=== PATIENT | female | born 1990 | race Hispanic/Latino ===

== ENCOUNTER 2016-04-09 10:18 | Outpatient (CLI) | payer OTHER ==
[~2016-04-09] VITALS: Ht 160 cm; Wt 70.0 kg
[~2016-04-09 10:18] MED LIST: /ONDA4TA PO; ULTR50TA PO; [UNRECOGNIZED DRUG - CODE] PO; augmentin PO; benadryl PO; celebrex PO; mylicon PO; neurontin PO; oxycodone PO; tylenol PO
[2016-04-09 10:38] VITALS: BP 128/75
--- NOTE | 2016-04-09 11:48 | IPNPDOC ---
Text Note Date of Service The patient was seen on 04/09/16 at 11:47. NOTE Subjective: Veena is a 25yo with SIUP at 21+ weeks who presents to triage after first episode of bleeding in . She reports that she was lying down and got up this morning, experienced a gush of fluid and when she looked noted it was blood that saturated her underwear. States she went to the bathroom and there was more blood in the toilet. Put a pad on and came here- just brown spotting on the pad. No fluid loss, just blood. Feels movement. Some slight cramping, but more annoying than painful. Denies abnormal vaginal discharge or smell. No recent intercourse. Did just return from seeing family for [place] in [place] yesterday. Had a long car trip, but stopped every hour or so to urinate and walk around. No other complaints. PMhx and course completely uncomplicated. Has not yet had 20wk anatomy scan- scheduled Apr. Objective: Vitals wnl Dop[place]es 140s [place]: slight uterine irritability Physical: Gen: well developed and well nourished in NAD. Mental: A&Ox3. Abdomen: Soft NT/ND without rebound or guarding Extremity: no edema in LE bilaterally (SSE chaperoned by RN)SSE: quarter sized clot removed from vaginal vault in front of cervix, os visually closed and cervix is thick with no active bleeding noted, no pooling of blood. Cervix not friable with touch of kimball swab. TAUS: positive FCA and FM; obrien IUP; visually adequate fluid; placenta posterior/fundal- not near the cervix, transverse presentation; no placental abnormalities noted. Assessment: Veena is a 25yo with SIUP at 21+ weeks with single isolated vaginal bleed in . Reassuring status with doptones and TAUS. Vitals stable with benign physical exam. Cervix visually closed and thick with no active bleeding. No evidence of placental abnormalities or previa on TAUS. course uncomplicated and PMHx noncontributory. Plan: -Advised vaginal rest until after anatomy scan on 13 April confirms my findings of no previa -Return precautions given. Patient knows to come back for another episode of bright red bleeding, but understands she will have some spotting in the next day or so -encouraged hydration and rest -med rec reviewed Dr. Dorian De La Garza MD [place], AZIZA VS,[place], I+O VSBryn I+O Vital Signs Date Time Temp Pulse Resp B/P Pulse Ox O2 Delivery O2 Flow Rate FiO2 04/09/16 10:38 96.7 16 04/09/16 10:38 92 128/75 DORIAN DE LA GARZA MD Apr 09, 2016 11:48
== END 2016-04-09 11:34 | disposition home or self-care (01) ==
LOC: M LDO 10:18
PROVIDERS: ATTEND Obstetrics & Gynecology
DX: O26.852 Spotting complicating pregnancy, second trimester (principal); Z3A.21 21 weeks gestation of pregnancy; O62.4 Hypertonic, incoordinate, and prolonged uterine contractions

== ENCOUNTER 2016-04-26 19:47 | Outpatient (CLI) | payer OTHER ==
[~2016-04-26] VITALS: Ht 160 cm; Wt 72.0 kg
[2016-04-26] MEDS ORDERED: ACET50TA PO (20:14)
[2016-04-26] MEDS ORDERED: PRENTAB55 PO (20:14)
--- NOTE | 2016-04-26 21:18 | IPNPDOC ---
Text Note Date of Service The patient was seen on 04/26/16 at 21:17. NOTE OB Triage Subjective: Pt is a 26yo with an IUP at 24+wk who presents to L&D complaining of various things such as episodes of SOB, occasional leg numbness when lying on her side in bed that resolves, two episodes of nausea with emesis today, left sided back pain, chest tenderness, congestion, and an episode of what she thinks was blacking out while lying on the couch watching Netflix this evening. She had her routine 24wk appointment earlier today where she had some of the complaints mentioned above, but not the emesis or passing out. She presents to make sure everything is ok. She drove here herself, her is in [place] for [employer] training. She denies: cough, fever, sore throat, sick contacts, diarrhea, burning with urination, previous episodes of blacking out, contractions, loss of fluid, vaginal bleeding She endorses good movement and hydration Objective: Vitals wnl to include pulse ox NST reassuring for gestational age with moderate variability, pos accels, neg decels [place]: No contractions or uterine irritability. Physical Exam: General: WDWN gravid female in NAD Mental : AAOx3 HEENT: oral mucosa moist Pulmonary: CTAB without rhales, rhonchi, or wheezes. Cardiac: RRR without murmurs, gallops, or rubs. Chest: non-specific mild tenderness to palpation generalized over chest wall Abdominal: Gravid abdomen without guarding or tenderness Back: No CVA tenderness Extremity: no edema in LE bilaterally, no pain with palpation of calves Random fingerstick glucose: 125 Assessment: Pt is a 26yo with an IUP at 24+wk with myriad unassociated physical complaints. Possible episode of syncope while patient was lying down watching tv and two episodes of reported emesis lead toward dx of nonspecific viral illness. Syncope not related to hypoglycemia or hypotension. Vitals stable without abnormalities on exam. Reassuring NST without CTXs or uterine irritability. Plan: -Pt instructed to go home and rest, advised to call our nurse/physician line if any particular symptoms are worsening -f/u at next OB appt as scheduled -continue good hydration -return to triage if syncope occurs again or if she experiences fever or any other concerning symptom MD Brenna Solomon OBGYN ISATU,DORIAN D. MD Apr 26, 2016 21:18
== END 2016-04-26 20:55 | disposition home or self-care (01) ==
LOC: M LDO 19:47
PROVIDERS: ATTEND Obstetrics & Gynecology
DX: O26.892 Other specified pregnancy related conditions, second trimester (principal); O21.2 Late vomiting of pregnancy; M54.89 Other dorsalgia; Z3A.24 24 weeks gestation of pregnancy

== ENCOUNTER 2016-06-06 05:38 | Outpatient (CLI) | payer OTHER ==
[~2016-06-06] VITALS: Ht 160 cm; Wt 75.0 kg
[~2016-06-06 05:38] MED LIST changes: +ACET50TA PO; +PRENTAB55 PO
[2016-06-06 05:59] VITALS: BP 114/65
--- NOTE | 2016-06-06 06:57 | IPNPDOC ---
Text Note Date of Service The patient was seen on 06/06/16. NOTE Subjective: Veena is a 26yo with an IUP at 29wk who presents to triage for ctxs/cramping. She states intermittent cramping started yesterday and has not stopped. The frequency is every 10 min. She has no other complaints or concerns at this time. ROS: Admits: Gross movement, good oral hydration. Denies: Vaginal bleeding/discharge/loss of fluid, fever, N/V, dysuria, urinary urgency, flank pain, recent sexual activity, vaginal itching or pain. Objective: VSS NST: Reactive with moderate variability, pos accels, neg decels. [place]: NO ctx or uterine irritability Physical Exam- General: WDWN gravid female in NAD Mental : AAOx3 HEENT: oral mucosa moist Abdominal: Soft NT/ND without guarding or rebound, no palpable ctx Extremity: no edema in LE bilaterally (SCE chaperoned by RN) SCE: closed/thick/high, very posterior Labs: Urine dipstick- unremarkable, spec grav 1.025 Assessment: Veena is a 26yo with an IUP at 29wk without evidence of labor. Vitals stable with benign physical exam. Reactive NST with no CTXs. SCE cl/th/high. Plan: - labor precautions discussed with patient. -f/u at next scheduled OB appt and growth scan indicated for inadequate weight gain - kick counts prn -encouraged increasing hydration -Return precautions given for bleeding, fluid loss, contractions, decreased movement -medrec reviewed Dr. Dorian De La Garza MD [place] [facility] [place] GREEN, I+O Bry[place] GREEN, I+O Vital Signs Date Time Temp Pulse Resp B/P Pulse Ox O2 Delivery O2 Flow Rate FiO2 06/06/16 06:00 20 06/06/16 05:59 97.5 84 114/65 Room Air DORIAN DE LA GARZA MD Jun 06, 2016 06:57
== END 2016-06-06 06:56 | disposition home or self-care (01) ==
LOC: M LDO 05:38
PROVIDERS: ATTEND Obstetrics & Gynecology
DX: O26.893 Other specified pregnancy related conditions, third trimester (principal); R10.9 Unspecified abdominal pain; Z3A.29 29 weeks gestation of pregnancy

== ENCOUNTER → 2016-06-07 | Outpatient (CLI) | payer OTHER ==
[2016-06-07 14:54] LABS: ALBUMIN 2.9 GM/DL (3.2-5.2); ALBUMIN/GLOBULIN RATIO 0.73 (1.00-1.93); ALKALINE PHOSPHATASE 97 U/L (45-117); ALT/SGPT 27 U/L (12-78); AST/SGOT 20 U/L (15-37); BILIRUBIN,DIRECT < 0.1 MG/DL (0.0-0.2); BILIRUBIN,TOTAL 0.2 MG/DL (0.2-1.0); TOTAL PROTEIN 6.9 GM/DL (6.4-8.2)
== END ==
LOC: M LAB 13:57
PROVIDERS: ATTEND Internal Medicine Gastroenterology
DX: R74.8 Abnormal levels of other serum enzymes (principal)

== ENCOUNTER 2016-08-01 18:02 | Outpatient (CLI) | payer OTHER ==
[~2016-08-01] VITALS: Ht 160 cm; Wt 74.0 kg
[2016-08-01] MEDS ORDERED: TUMS500C PO (18:10)
== END 2016-08-01 22:40 | disposition home or self-care (01) ==
LOC: M LDO 18:02
PROVIDERS: ATTEND Obstetrics & Gynecology
DX: O47.1 False labor at or after 37 completed weeks of gestation (principal); Z3A.37 37 weeks gestation of pregnancy

== ENCOUNTER 2016-08-08 07:30 | Inpatient (IN) | payer OTHER ==
[2016-08-08] VITALS (8 sets, daily range): BP systolic 123–145; BP diastolic 76–84
[~2016-08-08] VITALS: Ht 160 cm; Wt 72.6 kg
[~2016-08-08 07:30] MED LIST changes: -IBUP-1114 PO; -IBUP800T23 PO; -IBUPOTC PO; -MIRA33504 PO; -OXYC1TAB23 PO
[2016-08-08] MEDS ORDERED: LR 1,000 ML IV SCH (10:23)
[2016-08-08] MEDS ORDERED: LACTATED RINGER'S 1000 ML IV STA (10:23)
[2016-08-08] MEDS ORDERED: BICITRA 30ML SOLN UDC PO ONE (10:30)
--- NOTE | 2016-08-08 10:54 | HPEPDOC ---
Obstetrical History & Physical General Date of Admission August 08, 2016 at 10:08 History of Present Illness Veena is a 26yo with SIUP at 38w6d with known breech presentation having planned tomorrow presenting with gross rupture of membranes. Feels good movement, no VB. No painful ctx yet. 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 History: No pertinent history Past Medical History Medical History benign Surgical History: Appendectomy, Dilatation and Curettage Family History Significant Family History: No pertinent family hx Social History Marital Status: Family situation: Spouse/partner home Psychosocial History: No pertinent psych hx * Smoker: non-smoker Alcohol: Denies Drugs: denies Allergies Coded Allergies: No Known Allergies (Unverified , 05/28/13) Medications Scheduled Multivitamins/ ( 19) 1 Tab Tab, 1 TAB PO DAILY Scheduled PRN Acetaminophen (Mapap) 500 Mg Tab, 1,000 MG PO Q6HP PRN for PAIN Miscellaneous Medications Calcium Carbonate (Tums) 500 Mg Chw, 1,000 MG PO Physical Examination Physical Examination GENERAL: Alert and oriented times three. ABDOMEN: Gravid and non-tender to touch. FETUS: Breech via TAUS HEART RATE: Regular rate and rhythm. LUNGS: Clear to auscultation (CTA). EXTREMITIES: No edema. Grossly ruptured membranes Laboratory Data 24H LABS Laboratory Tests 2 08/08/16 10:13: Serology Scanned Report Hepatitis B Testing Pertinent Laboratoy Data Blood Type: O+ RBC Antibody Screen: Negative HIV: Negative Hepatitis B: Negative Hepatitis C: Unknown Rapid Plasma Reagin: Nonreactive Rubella: Immune Varicella: Nonreactive Chlamydia/Gonorrhea: Negative Group B Streptococcus: Negative Glucose Tolerance Test: 123 Assessment Heart Rate (FHR): 140 Variability: Moderate Accelerations: Positive Decelerations: None Tocometer Contractions: Yes Frequency: irregular Assessment/Plan Assessment Veena is a 26yo with SIUP at 38w6d with known breech presentation having planned tomorrow presenting with gross rupture of membranes. Breech sustained confirmed with TAUS. Vitals wnl. Benign exam. GBS negative. Cat I FHRT. PMhx benign course complicated by GERD and inadequate weight gain Plan Admit and orient. Counseled and consented again for PLTCS Diet NPO until after surgery Group B Streptococcus (GBS) negative Labs and intravenous (IV) per unit protocol. Lactated Ringers (LR): Bolus 1000 mL, then at 125 mL/hr. Ancef 2g pre-operatively as well as Bicitra SCDs and dorantes Anesthesia and nursing aware of plan, will proceed to OR when available MD ISATU Solomon KATRINA D. MD August 08, 2016 10:54
[2016-08-08 11:52] LABS: MEAN CORPUSCULAR HEMOGLOBIN 29.7 pg (27.0-33.0); MEAN CORPUSCULAR HGB CONC 33.7 g/dl (32.0-36.5); MEAN CORPUSCULAR VOLUME 88.2 fl (80.0-96.0); RED CELL DISTRIBUTION WIDTH 13.9 % (11.5-14.5); WHITE BLOOD COUNT 5.8 K/mm3 (4.0-10.0)
[2016-08-08] MEDS ORDERED: OXYTOCIN INJ 10 UNITS/ML VIAL (J2590) As Ordered ONE ×2 (11:59→13:32)
[2016-08-08] MEDS ORDERED: MORPHINE PRES-FREE INJ 10 MG/10 ML VIAL (J2274) As Ordered ONE (11:59)
[2016-08-08] MEDS ORDERED: NALOXONE INJ 0.4 MG/1 ML VIAL (J2310) IV PRN ×2 (13:01)
[2016-08-08] MEDS ORDERED: ONDANSETRON 4MG/2ML VIAL (J2405) IV PRN ×2 (13:01→15:15)
[2016-08-08] MEDS ORDERED: METOCLOPRAMIDE INJ 10MG/2ML VIAL (J2765) IV PRN (13:01)
[2016-08-08] MEDS ORDERED: NALBUPHINE HCL 10 MG/ML AMP (J2300) IV PRN ×2 (13:01→15:15)
[2016-08-08] MEDS ORDERED: dexameTHASONE 4 MG/ML 1ML VIAL (J1100) As Ordered ONE (13:13)
[2016-08-08] MEDS ORDERED: ePHEDrine SULFATE 25 MG/5 ML(5MG/ML) SYRINGE As Ordered ONE (13:32)
[2016-08-08] MEDS ORDERED: PHENYLephrine HCL 500 MCG/5 ML (100MCG/ML) SYRINGE (J2370) As Ordered ONE (13:32)
[2016-08-08] MEDS ORDERED: KETOROLAC 60 MG/2 ML VIAL (J1885) As Ordered ONE (13:34)
[2016-08-08] MEDS ORDERED: ONDANSETRON 4MG/2ML VIAL (J2405) As Ordered ONE (13:34)
[2016-08-08] MEDS ORDERED: MEPERIDINE 50 MG/ML 1ML VIAL (J2175) As Ordered ONE (13:48)
[2016-08-08] MEDS ORDERED: METOCLOPRAMIDE INJ 10MG/2ML VIAL (J2765) As Ordered ONE (13:52)
[2016-08-08] MEDS ORDERED: PERCOCET 5MG/325MG TAB PO PRN ×2 (14:30→15:15)
[2016-08-08] MEDS ORDERED: MEASLES,MUMPS,RUBELLA VACCINE INJ (MMR-II) (90707) SC SCH (14:30)
[2016-08-08] MEDS ORDERED: RHOGAM 300 MCG (1500 IU) INJ (J2790) IM SCH (14:30)
[2016-08-08] MEDS ORDERED: fentaNYL 100 MCG/2 ML INJECTION (J3010) IV PRN (15:15)
[2016-08-08] MEDS: PRENATAL VITAMIN TAB PO SCH (16:10)
[2016-08-08] MEDS ORDERED: LR 1,000 ML IV ONE (17:45)
--- NOTE | 2016-08-08 17:55 | RO ---
DATE OF PROCEDURE: 08/08/2016 PREPROCEDURE DIAGNOSIS: Term intrauterine , premature rupture of membranes, breech presentation. POSTPROCEDURE DIAGNOSIS: Term intrauterine , premature rupture of membranes, breech presentation. PROCEDURE: Primary low transverse section. SURGEON: Dr. Maya De La Garza CLAY MIXER: Dr. 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 MATERIALS FORWARDED TO THE LAB FOR EXAMINATION: None. DESCRIPTION OF FINDINGS: Female in double footling breech presentation. scores 8 and 9. Weight 2950 grams or 6 pounds 8 ounces. Normal appearing uterus, fallopian tubes and ovaries. INFECTION CLASSIFICATION: 2. ESTIMATED BLOOD LOSS: 500 mL. IV FLUIDS: 1800 mL of lactated Ringer's. URINE OUTPUT: 15 mL of yellow, clear urine. DESCRIPTION OF PROCEDURE: After obtaining informed consent, Veena was taken to the operating room. Gloria catheter and bilateral sequential compression devices were placed. After she received spinal anesthesia, she was prepped and draped in the normal sterile fashion in a dorsal supine position with a left lateral tilt. A time-out was performed to confirm patient name, date of , procedure and indication. The team was in agreement. She received 2g IV ancef prophylactically. Spinal anesthesia was found to be adequate using an Allis clamp. Pfannenstiel skin incision was made with a scalpel and carried through to the underlying layer of fascia. The fascia was incised in the midline, and the incision was extended laterally with Doherty scissors. Superior and inferior aspects of the fascial incision were grasped with Luke clamps, elevated and the underlying rectus muscles were dissected off bluntly and sharply. Peritoneum was entered digitally and the rectus muscles were in the midline. Peritoneal incision was extended superiorly and inferiorly with good visualization of the bladder. The bladder blade was inserted, and the vesicouterine peritoneum was identified, grasped with pickups and entered sharply with the Metzenbaum scissors. The incision was extended laterally and a bladder flap created digitally. Bladder blade was reinserted and the lower uterine segment was scored in a transverse fashion with a scalpel. Uterus was entered bluntly and the incision was extended with traction. Bladder blade was removed. The presenting part was the 's legs and feet, which were brought up to the level of the incision and then the pelvis. The legs were delivered together and then the left followed by the right arm were delivered by Lovset's maneuver. Head was delivered atraumatically in the occiput anterior (OA ) position. Nose and mouth were suctioned with bulb suction, and the cord was clamped times two and cut. was handed off to the awaiting nursing team. Spontaneous cry was immediately noted. Placenta was removed with firm traction on the cord and uterine massage. The uterus was exteriorized and cleared of all clot and debris. Uterine incision was repaired with an #0 Vicryl suture in a running locking fashion and a second layer of #0 Monocryl was used to close the hysterotomy incision in an imbricating fashion. The uterine incision was inspected. Hemostasis was noted. Posterior cul-de-sac was irrigated and the uterus returned to the abdomen. Gutters were cleared of all clot and irrigated with hemostasis noted. Fascia was reapproximated with #0 Vicryl suture in a running fashion. Ivette's fascia was reapproximated using #3-0 Vicryl suture in a running fashion in two layers. Skin edges were reapproximated using three inverted interrupted stitches using #3-0 Vicryl suture, followed by a running subcuticular stitch using #4-0 Monocryl. The incision was cleaned using wet lap, dried with a dry lap. Steri-Strips were applied in the usual fashion perpendicular to the Pfannenstiel incision. Surgical drapes were removed. Sterile towel was removed from over the incision and a pressure dressing was applied. Vagina was cleared of all blood clot without active bleeding noted. The fundus was firm at U -3 cm. All counts were correct times two. The procedure was without complications, and she tolerated the procedure well. The patient was taken to the recovery room on labor and delivery to recover further. NIKKI
[2016-08-08] MEDS: KETOROLAC 30 MG/ML VIAL (J1885) IV SCH (19:43)
[2016-08-08] MEDS: DOCUSATE SODIUM 100 MG CAP PO SCH (19:43)
[2016-08-08] MEDS: PERCOCET 5MG/325MG TAB PO PRN (21:28)
[2016-08-09] VITALS (7 sets, daily range): BP systolic 102–129; BP diastolic 59–79
[2016-08-09] MEDS: KETOROLAC 30 MG/ML VIAL (J1885) IV SCH ×3 (02:03→14:00)
[2016-08-09] MEDS: PERCOCET 5MG/325MG TAB PO PRN ×5 (02:03→20:53)
[2016-08-09 06:51] LABS: MEAN CORPUSCULAR HEMOGLOBIN 30.7 pg (27.0-33.0); MEAN CORPUSCULAR HGB CONC 34.5 g/dl (32.0-36.5); RED CELL DISTRIBUTION WIDTH 13.9 % (11.5-14.5); WHITE BLOOD COUNT 7.3 K/mm3 (4.0-10.0)
--- NOTE | 2016-08-09 07:05 | IPNPDOC ---
Text Note Date of Service The patient was seen on 08/09/16. NOTE Post-Op Day 1 Veena is a 26yo [id number] doing well on post-op day 1 s/p uncomplicated PLTCS indicated for breech presentation with PROM at 38w6d. She is . Lochia normal, spontaneously voiding and ambulating without difficulty. Tolerating regular diet. Denies f/c/n/v/SOB/CP/WARNER/abdominal pain. Vitals wnl, afebrile Exam: General: WDWN, NAD, resting comfortably Cardiac: S1S2 present, no murmur Lungs: CTAB without wheeze/crackles Abdomen: soft, NTTP, fundus firm u-2cm, pfannensteil incision covered by dry dressing Extremities: no tenderness of calves bilaterally Assessment: Veena is a 26yo [id number] doing well on post-op day 1 s/p uncomplicated PLTCS indicated for breech presentation with PROM at 38w6d. Vitals wnl, benign exam. No e/o infection, hemodynamically stable. Plan: -routine post-op/post- care -shower today and remove dressing -Regular diet -Encourage ambulation and and use of IS -CBC pending this morning -desires minipill for contraception Dr. Dorian De La Garza MD [place] AZIZA VS,[place], I+O VS, Bryn, I+O Laboratory Tests 08/08/16 10:54 Red Blood Count 3.91 L, Mean Corpuscular Volume 88.2, Mean Corpuscular Hemoglobin 29.7, Mean Corpuscular Hemoglobin Concent 33.7, Red Cell Distribution Width 13.9 08/09/16 06:32 Red Blood Count 3.19 L, Mean Corpuscular Volume 89.0, Mean Corpuscular Hemoglobin 30.7, Mean Corpuscular Hemoglobin Concent 34.5, Red Cell Distribution Width 13.9 Vital Signs Date Time Temp Pulse Resp B/P (MAP) Pulse Ox O2 Delivery O2 Flow Rate FiO2 08/09/16 06:06 97.8 63 18 102/63 (76) 08/09/16 02:17 98 Room Air I&O- Last 24 Hours up to 6 AM 08/09/16 06:00 Intake Total 1400 ml Output Total 2625 ml Balance -1225 ml DORIAN DE LA GARZA MD August 09, 2016 07:05
[2016-08-09] MEDS: DOCUSATE SODIUM 100 MG CAP PO SCH ×2 (08:26→20:54)
[2016-08-09] MEDS: PRENATAL VITAMIN TAB PO SCH (08:26)
[2016-08-09] MEDS: IBUPROFEN 800 MG TAB PO SCH (21:58)
[2016-08-10] MEDS: IBUPROFEN 800 MG TAB PO SCH (05:15)
[2016-08-10] MEDS: PERCOCET 5MG/325MG TAB PO PRN (05:16)
[2016-08-10 06:28] VITALS: BP 131/67
[2016-08-10] MEDS: DOCUSATE SODIUM 100 MG CAP PO SCH (08:21)
[2016-08-10] MEDS: PRENATAL VITAMIN TAB PO SCH (08:22)
--- NOTE | 2016-08-10 11:59 | IPNPDOC ---
Text Note Date of Service The patient was seen on 08/10/16. NOTE Post-Op Day 2 Veena is a 26yo [id number] doing well on post-op day 2 s/p uncomplicated PLTCS indicated for breech presentation with PROM at 38w6d. She is . Lochia normal, spontaneously voiding and ambulating without difficulty. Tolerating regular diet. Denies f/c/n/v/SOB/CP/WARNER/abdominal pain. Vitals wnl, afebrile Exam: General: WDWN, NAD, resting comfortably Cardiac: S1S2 present, no murmur Lungs: CTAB without wheeze/crackles Abdomen: soft, NTTP, fundus firm u-3cm, pfannensteil incision with steri strips overlying, clean/dry/intact with no drainage or erythema Extremities: no tenderness of calves bilaterally Labs: Pre-operative H/H 12.1/34.5 Post-operative H/H 9.8/28.4 Assessment: Veena is a 26yo [id number] doing well on post-op day 2 s/p uncomplicated PLTCS indicated for breech presentation with PROM at 38w6d. Vitals wnl, benign exam. No e/o infection, hemodynamically stable. Plan: -discharge to home today vs boarding if infant must stay for bili light -Regular diet, vaginal rest for 6 weeks -Has home meds to take: motrin, percocet, lanolin, miralax -desires minipill for contraception, will prescribe at 2wk visit in office Dr. Dorian De La Garza MD [place] [facility] VS,[place], I+O VS, [place], I+O Vital Signs Date Time Temp Pulse Resp B/P (MAP) Pulse Ox O2 Delivery O2 Flow Rate FiO2 08/10/16 06:28 97.7 74 18 131/67 (88) 08/09/16 22:06 99 Room Air I&O- Last 24 Hours up to 6 AM 08/10/16 06:00 Intake Total 1140 ml Balance 1140 ml DORIAN DE LA GARZA MD August 10, 2016 11:59
[2016-08-10] MEDS ORDERED: OXYC1TAB23 PO (12:01)
[2016-08-10] MEDS ORDERED: IBUP-1114 PO (12:01)
--- NOTE | 2016-08-10 12:05 | DS.PDOC ---
Discharge Summary General Date of Admission August 08, 2016 at 10:08 Date of Discharge August 10, 2016 Attending Physician: DORIAN LUNSFORD MD Discharge Summary PROCEDURES PERFORMED DURING STAY: Primary low transverse section ADMITTING DIAGNOSES: 1. Premature rupture of membranes at term 2. Breech presentation DISCHARGE DIAGNOSES: 1. Premature rupture of membranes at term 2. Breech presentation COMPLICATIONS/CHIEF COMPLAINT: Malpresentation. HISTORY OF PRESENT ILLNESS/HOSPITAL COURSE: Veena is a 26 year old [id number] status post uncomplicated primary low transverse section indicated for breech presentation with premature rupture of membranes at 38 weeks 6 days gestation. She had a benign post- operative course and at time of discharge on post-operative day two, her vitals were normal with benign exam. She had no evidence of infection and was hemodynamically stable. DISCHARGE MEDICATIONS: Has home meds to take: motrin, percocet, lanolin, miralax ALLERGIES: Please see below. PHYSICAL EXAMINATION ON DISCHARGE: Vitals wnl, afebrile Exam: General: WDWN, NAD, resting comfortably Cardiac: S1S2 present, no murmur Lungs: CTAB without wheeze/crackles Abdomen: soft, NTTP, fundus firm u-3cm, pfannensteil incision with steri strips overlying, clean/dry/intact with no drainage or erythema Extremities: no tenderness of calves bilaterally LABORATORY DATA: Pre-operative H/H 12.1/34.5 Post-operative H/H 9.8/28.4 ACTIVITY: vaginal rest 6 weeks DIET: regular DISPOSITION: home vs boarding today if baby needs to stay for bili light DISCHARGE INSTRUCTIONS: 1. Keep incision clean and dry 2. No heavy lifting greater than weight of baby 3. Vaginal rest for 6 weeks 4. Desires minipill for contraception, will prescribe at 2wk visit in office 5. 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 MD Brenna Solomon Vital Signs/I&Os Vital Signs Date Time Temp Pulse Resp B/P (MAP) Pulse Ox O2 Delivery O2 Flow Rate FiO2 08/10/16 06:28 97.7 74 18 131/67 (88) 08/09/16 22:06 99 Room Air I&O- Last 24 Hours up to 6 AM 08/10/16 06:00 Intake Total 1140 ml Balance 1140 ml Discharge Medications Scheduled Multivitamins/ ( 19) 1 Tab Tab, 1 TAB PO DAILY, (Reported) Scheduled PRN Acetaminophen (Mapap) 500 Mg Tab, 1,000 MG PO Q6HP PRN for PAIN, (Reported) Miscellaneous Medications Calcium Carbonate (Tums) 500 Mg Chw, 1,000 MG PO, (Reported) Allergies Coded Allergies: No Known Allergies (Unverified , 05/28/13) DORIAN LUNSFORD MD August 10, 2016 12:05
== END 2016-08-10 14:30 | disposition home or self-care (01) | DRG 766 ==
LOC: M LDI 10:08 → M OBS 16:41
PROVIDERS: ADMIT Obstetrics & Gynecology; ATTEND Obstetrics & Gynecology
PROC: 10D00Z1 Extraction of Products of Conception, Low, Open Approach (ICD-10-PCS; principal; 2016-08-08 13:24)
DX: O32.8XX0 Maternal care for other malpresentation of fetus, not applicable or unspecified (principal); Z37.0 Single live birth; Z3A.38 38 weeks gestation of pregnancy; O42.02 Full-term premature rupture of membranes, onset of labor within 24 hours of rupture

== ENCOUNTER → 2016-08-08 | Outpatient (CLI) | payer OTHER ==
[~2016-08-08] VITALS: Ht 160 cm; Wt 72.0 kg
[~2016-08-08] MED LIST changes: +IBUP-1114 PO; +IBUP800T23 PO; +IBUPOTC PO; +MIRA33504 PO; +OXYC1TAB23 PO; +TUMS500C PO
== END ==
LOC: M LDO 09:11
PROVIDERS: ATTEND Midwife
DX: Z53.9 Procedure and treatment not carried out, unspecified reason (principal)

== ENCOUNTER 2016-08-12 12:45 | Inpatient (IN) | payer OTHER ==
[~2016-08-12] VITALS: Ht 160 cm; Wt 72.6 kg
[~2016-08-12 12:45] MED LIST changes: +IBUP-1114 PO; +OXYC1TAB23 PO
[2016-08-12] MEDS ORDERED: NS 1,000 ML IV ONE (13:45)
[2016-08-12 14:28] LABS: BASO % 0.6 % (0.0-1.0); EOS % 0.7 % (0.0-3.0); LARGE UNSTAINED CELL % 0.9 % (0.0-4.0); LYMPH # 0.2 K/mm3 (1.5-6.5); LYMPH % 4.7 % (24.0-44.0); MEAN CORPUSCULAR HEMOGLOBIN 29.9 pg (27.0-33.0); MEAN CORPUSCULAR HGB CONC 33.7 g/dl (32.0-36.5); MEAN CORPUSCULAR VOLUME 88.8 fl (80.0-96.0); MONO # 0.1 K/mm3 (0.0-0.8); MONO % 2.6 % (0.0-5.0); NEUTROPHILS # 3.4 K/mm3 (1.8-7.7); NEUTROPHILS % 90.5 % (36.0-66.0); PLATELET COUNT, AUTOMATED 208 k/mm3 (150-450); RED CELL DISTRIBUTION WIDTH 13.8 % (11.5-14.5); WHITE BLOOD COUNT 3.8 K/mm3 (4.0-10.0)
[2016-08-12 14:50] LABS: ANION GAP 8 MEQ/L (8-16); BLOOD UREA NITROGEN 6 MG/DL (7-18); CALCIUM LEVEL 7.8 MG/DL (8.5-10.1); CARBON DIOXIDE LEVEL 25 MEQ/L (21-32); CHLORIDE LEVEL 104 MEQ/L (98-107); CREATININE FOR GFR 0.68 MG/DL (0.55-1.02); GLOMERULAR FILTRATION RATE > 60.0 (>60); GLUCOSE, FASTING 114 MG/DL (70-105); POTASSIUM SERUM 3.5 MEQ/L (3.5-5.1); SODIUM LEVEL 137 MEQ/L (136-145)
[2016-08-12 14:53] LABS: ERYTHROCYTE SEDIMENTATION RATE 107 mm/hr (0-20)
[2016-08-12] MEDS ORDERED: ISOVUE-370 76% 100ML VIAL (Q9967) As Ordered ONE (14:57)
[2016-08-12] MEDS ORDERED: CLINDAMYCIN 900 MG in APPROPRIATE DILUENT 1 EA IV ONE (18:15)
[2016-08-12] MEDS ORDERED: PERCOCET 5MG/325MG TAB PO ONE (18:15)
[2016-08-12] MEDS ORDERED: IBUPOTC PO (18:19)
[2016-08-12] MEDS ORDERED: IBUP800T23 PO (18:20)
[2016-08-12] MEDS ORDERED: MIRA33504 PO (18:21)
[2016-08-12] MEDS ORDERED: AMPICILLIN SOD/SULBACTAM SOD 3 GM in D5W MINI-BAG PLUS 100 ML IV ONE (18:30)
[2016-08-12] MEDS ORDERED: GENTAMICIN 120 MG in D5W 50 ML IV ONE (18:30)
--- NOTE | 2016-08-12 18:40 | REPUSA ---
CLINICAL HISTORY: 7 days previously, fever and pain. TECHNIQUE: Ultrasound of the pelvis was performed. ULTRASOUND PELVIS : Uterus: Enlarged post gravid appearance measuring 18.3 x 6.7 x 10.4 cm. Posterior myometrial fibroid measures 2.7 x 2.5 x 2.5 cm. Endometrial stripe: 2.2 cm thickness, but without internal bloodflow to suggest retained products of conception. Right ovary: Not visualized. Left ovary: Not visualized. Pelvic fluid: Physiologic. IMPRESSION: Nonvascular endometrial contents consistent with blood products, without retained product s of conception.
[2016-08-12] MEDS ORDERED: PIPERACILLIN/TAZOBACTAM SOD 3.375 GM in D5W MINI-BAG PLUS 50 ML IV ONE (18:45)
[2016-08-12 20:00] VITALS: BP_SYST 131; BP_SYST 133; BP_DIAS 74; BP_DIAS 75
[2016-08-12] MEDS ORDERED: ACETAMINOPHEN 500 MG TAB As Ordered ONE (20:41)
[2016-08-12] MEDS: NS 1,000 ML IV SCH (20:44)
[2016-08-12] MEDS: ACETAMINOPHEN 500 MG TAB PO PRN (20:47)
--- NOTE | 2016-08-12 21:40 | REPUSA ---
Clinical history: fever. Comparison: None. Findings: Frontal and lateral views of the chest were obtained. The mediastinum and cardiac silhouett e are within normal limits. The lungs are clear. No pleural effusion or pneumothorax is seen. The oss eous structures and soft tissues are unremarkable. Impression: No acute disease.
[2016-08-12] MEDS: IBUPROFEN 600 MG TAB PO PRN (22:49)
[2016-08-13] MEDS: PIPERACILLIN/TAZOBACTAM SOD 3.375 GM in D5W MINI-BAG PLUS 50 ML IV SCH ×4 (01:00→19:08)
[2016-08-13] MEDS: ACETAMINOPHEN 500 MG TAB PO PRN ×3 (02:30→16:07)
[2016-08-13] MEDS: NS 1,000 ML IV SCH ×2 (04:28→13:04)
[2016-08-13 06:16] LABS: MEAN CORPUSCULAR HEMOGLOBIN 29.7 pg (27.0-33.0); MEAN CORPUSCULAR HGB CONC 32.7 g/dl (32.0-36.5); MEAN CORPUSCULAR VOLUME 90.7 fl (80.0-96.0); RED CELL DISTRIBUTION WIDTH 13.9 % (11.5-14.5); WHITE BLOOD COUNT 2.9 K/mm3 (4.0-10.0)
[2016-08-13 07:29] VITALS: BP 116/74
--- NOTE | 2016-08-13 08:45 | REP ---
CT ABDOMEN AND PELVIS WITH IV CONTRAST ONLY: HISTORY: Recent section. Assess for abscess. CONTRAST: 100 mL [id number] COMPARISON: 10/27/2015 A few subsegmental atelectatic changes are seen in the lung bases. The liver, gallbladder, spleen, pancreas, adrenal glands and kidneys are unchanged remaining within normal limits. There is no free intraperitoneal air. There is air density between the right external oblique muscle and the transversalis muscle and air density in the subcutaneous fat overlying the pelvis, all secondary to previous section. There is no free fluid in the abdomen. The bowel loops and their mesenteries are within normal limits. The pancreas, adrenal glands and kidneys are within normal limits. There is mild bilateral hydronephrosis, likely secondary to the previous state and recent section. The uterus is markedly enlarged and there is a small amount of free fluid in the pelvis, probably physiologic. The uterine enlargement is consistent with previous section. There is a single dot of free air in the pelvis and the left adnexa likely secondary to previous section. The pelvic bowel loops and their mesenteries are within normal limits. The osseous structures are within normal limits. IMPRESSION: Recent section and findings as described above. There is no evidence of an abscess. There is mild bilateral hydronephrosis likely secondary to the uterine enlargement and recent state. It is mild. Signed by Ced Brumfield DO 08/13/2016 09:55 A
[2016-08-13] MEDS: IBUPROFEN 600 MG TAB PO PRN ×2 (11:29→19:09)
[2016-08-13 12:00] VITALS: BP 122/77
[2016-08-13 16:00] VITALS: BP 128/80
[2016-08-13 20:30] VITALS: BP 124/76
[2016-08-14] MEDS: PIPERACILLIN/TAZOBACTAM SOD 3.375 GM in D5W MINI-BAG PLUS 50 ML IV SCH ×4 (00:10→20:02)
[2016-08-14] MEDS: ACETAMINOPHEN 500 MG TAB PO PRN ×2 (00:10→16:30)
[2016-08-14] MEDS: NS 1,000 ML IV SCH ×4 (00:28→21:33)
[2016-08-14] MEDS: IBUPROFEN 600 MG TAB PO PRN ×3 (02:06→17:27)
[2016-08-14 08:00] VITALS: BP 122/87
[2016-08-14 12:00] VITALS: BP 139/85
[2016-08-14 12:20] VITALS: BP 128/87
[2016-08-14 16:00] VITALS: BP 144/81
[2016-08-14 17:20] LABS: BASO % 0.2 % (0.0-1.0); EOS % 0.4 % (0.0-3.0); LARGE UNSTAINED CELL % 1.1 % (0.0-4.0); MEAN CORPUSCULAR HEMOGLOBIN 30.3 pg (27.0-33.0); MEAN CORPUSCULAR HGB CONC 33.3 g/dl (32.0-36.5); MEAN CORPUSCULAR VOLUME 90.9 fl (80.0-96.0); MONO # 0.1 K/mm3 (0.0-0.8); MONO % 1.8 % (0.0-5.0); NEUTROPHILS % 84.4 % (36.0-66.0); PLATELET COUNT, AUTOMATED 189 k/mm3 (150-450); RED CELL DISTRIBUTION WIDTH 13.8 % (11.5-14.5)
[2016-08-14 17:22] LABS: DIFF SLIDE NUMBER 280; LYMPH # 0.4 K/mm3 (1.5-6.5); NEUTROPHILS # 2.5 K/mm3 (1.8-7.7)
[2016-08-14 20:00] VITALS: BP 124/70
[2016-08-14] MEDS ORDERED: GASTROGRAFIN SOLUTION 30ML PO ONE (20:30)
[2016-08-14] MEDS ORDERED: GASTROGRAFIN SOLUTION 30ML (Q9963) PO ONE (21:00)
--- NOTE | 2016-08-14 21:00 | REPUSA ---
Clinical history: Right upper quadrant pain. Findings: The pancreas is limited in visualization secondary to overlying bowel gas, but appears sara sly unremarkable. The liver demonstrates increased echotexture and echogenicity, with no mass lesions . The gallbladder is unremarkable. The common bile duct measures 5 mm and is within normal limits. Th e right kidney measures 13.4 cm in length and is unremarkable. There is a small amount of ascites thr oughout the abdomen. Impression: 1. Increase echogenicity of the liver suggest fatty infiltration. 2. The gallbladder is unremarkable. 3. Small amount of ascites in all quadrants of the abdomen.
[2016-08-14] MEDS: ONDANSETRON 4MG/2ML VIAL (J2405) IV PRN (21:33)
--- NOTE | 2016-08-14 21:34 | IPNPDOC ---
Text Note Date of Service The patient was seen on 08/14/16. NOTE Prog note, late entry for all care given earlier today 26 y/o s/p delivery on 2MAY for breech, readmitted on 6MAY in the late evening with high fevers but no obvious source of infection. See Dr Harden' s extensive H&P and exam, all of which was normal. Underwent an abd/pelvic CT with IV contrast, a pelvic US, and a CXR all normal. Also had blood cultures done (neg) a urine cx (neg) and neg flu A and B done. She was placed on Zosyn that evening, had persistent fevers until 0600 7MAY then defervesced until 2029 on 7MAY when her T again spiked most of the night, TMax 103.6 at 0100 this AM, 8MAY. She again defervesced throughout the waking day today [id number] when she spiked again a T, currently doc'd TMax of 104 at 1900. Received 1000 mg Tylenol at 1630 and 600 mg Motrin at 1730 This afternoon began to complain of a newerish epigastric pain and some loose stools and nausea, has vomited once earlier today. Denies leg pain, SOB/CP/ cough. CBC at 1700 had a HCT 30.7, Plt 189, WBC 3.0 I examined her in the late afternoon/early evening: moist mucous membranes, no oral lesions no ear pain discharge No neck stiffness, no obvious lymphadenopathy Breast exam normal no erythema or pain Abdomen soft bs active 4 quadrants, slight tenderness to palpation over the epigastrium, not specific to the RUQ however uterus 3 below U, nontender Nl tenderness over a well-healing Pfannensteil Extr normal, no edema a/p: Still no obvious source of infection for this pt 1 week postop with cyclical high fevers. Considering the rare diagnosis of septic pelvic thrombophlebitis (SPT). I plan on doing a liver/GB/pancr US due to her new upper abd discomfort as well as repeating the CT of her Abd/pelvis as has been 48 hrs to look for possible evolving abscess/infection? Will do with IV and PO contrast looking for possible clots in the pelvic vasculature. Strange that she has no elevated WBC with her fevers, makes infection less likely after these 2 days of observation. Both studies ordered after disc with the [facility] techs and nurses caring for her. Must be NPO for 6 hrs prior to both and she meets this criteria. If abscess/infection ruled out I will start lovenox to Tx for possible SPT, a diagnosis of exclusion. Sessions Bryn CUELLAR, I+O VSBryn I+O Laboratory Tests 08/14/16 17:07 Red Blood Count 3.38 L, Mean Corpuscular Volume 90.9, Mean Corpuscular Hemoglobin 30.3, Mean Corpuscular Hemoglobin Concent 33.3, Red Cell Distribution Width 13.8, Neutrophils (%) (Auto) 84.4 H, Lymphocytes (%) (Auto) 12.0 L, Monocytes (%) (Auto) 1.8, Eosinophils (%) (Auto) 0.4, Basophils (%) ( Auto) 0.2, Neutrophils # (Auto) 2.5, Lymphocytes # (Auto) 0.4 L, Monocytes # ( Auto) 0.1, Eosinophils # (Auto) 0.0, Basophils # (Auto) 0.0 Vital Signs Date Time Temp Pulse Resp B/P (MAP) Pulse Ox O2 Delivery O2 Flow Rate FiO2 08/14/16 18:59 104.0 08/14/16 16:00 102 18 144/81 (102) 100 Room Air I&O- Last 24 Hours up to 6 AM 08/14/16 06:00 Intake Total 4705 ml Output Total 4200 ml Balance 505 ml AVI SHAVER MD August 14, 2016 21:34
[2016-08-14] MEDS ORDERED: ISOVUE-370 76% 100ML VIAL (Q9967) As Ordered ONE (22:52)
--- NOTE | 2016-08-14 23:40 | REPUSA ---
Addendum report. Clinical statement: fever of unknown origin, . Technique: Multiple axial CT images were obtained from the base of the lungs to the floor of the pelv is utilizing 5 mm axial slices after administration of nonionic intravenous contrast. Patient ingeste d oral contrast. Coronal and sagittal reconstructions were also obtained. Comparison: 08/12/2016. Ultrasound, 08/12/2016. Findings: Chest: Interval appearance of small bilateral pleural effusions with passive atelectatic airspace dis ease of the lower lobes. Abdomen: The kidneys are normal in size bilaterally. There is no evidence of hydronephrosis or nephro lithiasis. The liver, spleen, pancreas and adrenal glands are unremarkable. Sludge is layering in the gallbladder. The aorta demonstrates normal caliber and contour. There is interval appearance of mild ascites. Pelvis: There is small bowel intussusception at the level of the proximal jejunum. No associated eílas l perforation, bowel edema or pneumatosis intestinalis. There is free passage of the oral contrast at the level of the intussusception without associated obstruction. The appendix is normal. The urinary bladder is within normal limits. There is no pelvic lymphadenopathy. There is interval appearance of a small amount of free fluid in the cul-de-sac. There is diffuse enlargement of the uterus, consiste nt with postgravid status. Unchanged diffuse thickening of the wall of the bladder. Bones: There are no suspicious osseous abnormalities seen. Impression: 1. The enlarged postgravid uterus is grossly stable. If there is concern about endometrial contents, ultrasound would be preferable imaging modality of choice. 2. Interval appearance of small bilateral pleural effusions. Interval appearance of small amount of f ree fluid in the abdomen and pelvis. 3. Interval appearance of a small bowel intussusception at the level of the proximal jejunum. No asso ciated bowel obstruction, perforation or pneumatosis intestinalis. 4. Layering sludge is identified in the gallbladder. 5. Unchanged diffuse thickening of the wall of the bladder suggestive of mild cystitis. 6. Resolution of pneumoperitoneum. Decreased anterior abdominal wall soft tissue emphysema.
[2016-08-15] VITALS (8 sets, daily range): BP systolic 107–134; BP diastolic 68–81
--- NOTE | 2016-08-15 01:10 | IPNPDOC ---
Text Note Date of Service The patient was seen on 08/15/16. NOTE Final CT read and final RUQUS read pending but preliminary reads are nonrevelatory for abscess/infection. Small amt ascites noted. Pt has defervesced since 1899 T 104 and 1999 T 100.3. Sleeping soundly and RN reports pain is much improved. Plan to cont to watch and if/when fever spikes again will start Lovenox 1 mg/kg BID for presumed dx of septic pelvic thrombophlebitis. If does not spike for 24-48 hours will d/c with home course of PO abx, likely augmentin. As there are no signs of septic emboli or pelvic thromboses, and assuming she spikes a temp again, would anticoagulate until afebrile for 48 hours then discontinue the Lovenox. Will review the final reads on the RUQUS and CT A/P in the AM. CBC and CMP and lipase/amylase ordered for 0500 today. Sessions VS,Bryn, I+O VSBryn I+O Laboratory Tests 08/14/16 17:07 Red Blood Count 3.38 L, Mean Corpuscular Volume 90.9, Mean Corpuscular Hemoglobin 30.3, Mean Corpuscular Hemoglobin Concent 33.3, Red Cell Distribution Width 13.8, Neutrophils (%) (Auto) 84.4 H, Lymphocytes (%) (Auto) 12.0 L, Monocytes (%) (Auto) 1.8, Eosinophils (%) (Auto) 0.4, Basophils (%) ( Auto) 0.2, Neutrophils # (Auto) 2.5, Lymphocytes # (Auto) 0.4 L, Monocytes # ( Auto) 0.1, Eosinophils # (Auto) 0.0, Basophils # (Auto) 0.0 Vital Signs Date Time Temp Pulse Resp B/P (MAP) Pulse Ox O2 Delivery O2 Flow Rate FiO2 08/15/16 00:00 98.3 80 18 122/75 (91) 98 Room Air I&O- Last 24 Hours up to 6 AM 08/15/16 05:59 Intake Total 2750 ml Output Total 1900 ml Balance 850 ml SESSIONS,AVI Schumacher MD August 15, 2016 01:10
[2016-08-15] MEDS: PIPERACILLIN/TAZOBACTAM SOD 3.375 GM in D5W MINI-BAG PLUS 50 ML IV SCH ×4 (01:58→18:32)
[2016-08-15 05:56] LABS: MEAN CORPUSCULAR HEMOGLOBIN 30.2 pg (27.0-33.0); MEAN CORPUSCULAR HGB CONC 32.7 g/dl (32.0-36.5); MEAN CORPUSCULAR VOLUME 92.4 fl (80.0-96.0); RED CELL DISTRIBUTION WIDTH 13.8 % (11.5-14.5); WHITE BLOOD COUNT 3.1 K/mm3 (4.0-10.0)
[2016-08-15 06:17] LABS: ALBUMIN 1.8 GM/DL (3.2-5.2); ALKALINE PHOSPHATASE 104 U/L (45-117); ALT/SGPT 61 U/L (12-78); AMYLASE 70 U/L (25-115); ANION GAP 11 MEQ/L (8-16); AST/SGOT 70 U/L (15-37); BILIRUBIN,TOTAL 0.3 MG/DL (0.2-1.0); BLOOD UREA NITROGEN 5 MG/DL (7-18); CALCIUM LEVEL 7.2 MG/DL (8.5-10.1); CARBON DIOXIDE LEVEL 20 MEQ/L (21-32); CHLORIDE LEVEL 110 MEQ/L (98-107); CREATININE FOR GFR 0.57 MG/DL (0.55-1.02); GLOMERULAR FILTRATION RATE > 60.0 (>60); GLUCOSE, FASTING 70 MG/DL (70-105); POTASSIUM SERUM 3.2 MEQ/L (3.5-5.1); SODIUM LEVEL 141 MEQ/L (136-145); TOTAL PROTEIN 5.4 GM/DL (6.4-8.2)
[2016-08-15] MEDS: NS 1,000 ML IV SCH (06:57)
[2016-08-15] MEDS: ONDANSETRON 4MG/2ML VIAL (J2405) IV PRN ×2 (10:11→22:48)
[2016-08-15] MEDS: IBUPROFEN 600 MG TAB PO PRN (10:11)
[2016-08-15] MEDS ORDERED: FUROSEMIDE 20 MG/2 ML VIAL (J1940) IV ONE (12:30)
[2016-08-15] MEDS ORDERED: traMADol 50 MG TAB PO ONE (12:30)
[2016-08-15] MEDS: ACETAMINOPHEN 500 MG TAB PO PRN ×2 (12:39→21:23)
[2016-08-16] MEDS: PIPERACILLIN/TAZOBACTAM SOD 3.375 GM in D5W MINI-BAG PLUS 50 ML IV SCH ×4 (00:45→18:54)
[2016-08-16] MEDS: IBUPROFEN 600 MG TAB PO PRN (00:45)
[2016-08-16 06:00] VITALS: BP 127/77
[2016-08-16 08:00] VITALS: BP 132/72
[2016-08-16] MEDS ORDERED: SLF 3 ML SYR IV PRN (08:15)
[2016-08-16] MEDS: ACETAMINOPHEN 500 MG TAB PO PRN ×2 (08:19→19:03)
[2016-08-16] MEDS: ENOXAPARIN 80 MG/0.8 ML SYRINGE (J1650) SC SCH ×2 (09:19→22:01)
[2016-08-16 12:00] VITALS: BP 118/67
[2016-08-16] MEDS: SLF 3 ML SYR IV SCH ×2 (13:25→22:00)
[2016-08-16 16:00] VITALS: BP 134/82
[2016-08-16] MEDS: ONDANSETRON 4MG/2ML VIAL (J2405) IV PRN (16:47)
[2016-08-16 16:48] VITALS: BP 131/84
[2016-08-16 18:40] LABS: DIFF SLIDE NUMBER 304; MEAN CORPUSCULAR HEMOGLOBIN 30.3 pg (27.0-33.0); MEAN CORPUSCULAR HGB CONC 33.2 g/dl (32.0-36.5); MEAN CORPUSCULAR VOLUME 91.4 fl (80.0-96.0); PLATELET COUNT, AUTOMATED 209 k/mm3 (150-450); RED CELL DISTRIBUTION WIDTH 13.7 % (11.5-14.5); WHITE BLOOD COUNT 2.4 K/mm3 (4.0-10.0)
[2016-08-16 18:59] LABS: ALBUMIN 2.2 GM/DL (3.2-5.2); ALBUMIN/GLOBULIN RATIO 0.47 (1.00-1.93); ALKALINE PHOSPHATASE 119 U/L (45-117); ALT/SGPT 60 U/L (12-78); AMYLASE 94 U/L (25-115); ANION GAP 11 MEQ/L (8-16); AST/SGOT 79 U/L (15-37); BILIRUBIN,TOTAL 0.3 MG/DL (0.2-1.0); BLOOD UREA NITROGEN 3 MG/DL (7-18); CALCIUM LEVEL 7.9 MG/DL (8.5-10.1); CARBON DIOXIDE LEVEL 23 MEQ/L (21-32); CHLORIDE LEVEL 106 MEQ/L (98-107); CREATININE FOR GFR 0.74 MG/DL (0.55-1.02); GLOMERULAR FILTRATION RATE > 60.0 (>60); GLUCOSE, FASTING 76 MG/DL (70-105); POTASSIUM SERUM 3.2 MEQ/L (3.5-5.1); SODIUM LEVEL 140 MEQ/L (136-145); TOTAL PROTEIN 6.9 GM/DL (6.4-8.2)
[2016-08-16 19:10] LABS: BANDS 5 % (< 11)
[2016-08-16 20:00] VITALS: BP 127/78
--- NOTE | 2016-08-16 20:44 | IPNPDOC ---
Text Note Date of Service The patient was seen on 08/16/16. NOTE Daily Progress Note, HD 5, POD 8 Veena is a 26y/o s/p uncomplicated section on 08 August for breech presentation with PROM with benign post-op course, re-admitted on 12 August in the late evening with fever to 100.4F but no obvious source of infection. She has now undergone two abdominal/pelvic CT scans, TVUS, CXR, and RUQUS, which have all been essentially benign (some gallbladder sludge and wall thickening noted as well as small bowel intussusception at level of proximal jejunum with no associated bowel obstruction/perforation/pneumatosis intestinalis) with normal post-operative changes. She has also had negative blood and urine cultures as well as negative flu A and B. She was started on Zosyn 12 August despite no elevated WBC count, and has had cyclic fevers that seem to spike at night. She was started on therapeutic lovenox this morning for possible diagnosis of exclusion: septic pelvic thrombophlebitis. At time of admission she had no specific complaints other than the fevers/ chills. However, on 14 August she states she started to have pain in the middle of her upper abdomen. This pain comes and goes, was not present at all yesterday, but returned today. When the pain in this specific area spikes, she vomits. She notes she has not been able to keep any food or water down all day today secondary to the pain and has had lack of appetite in general the last few days. Had loose stool 2 days ago. Given these continued complaints, and finding of gallbladder sludge on prior RUQUS, repeat RUQUS was ordered which has its result pending. She denies any upper respiratory symptoms to include cough/congestion/sore throat. No dysuria. Lochia has been minimal, increased slightly today after initiating lovenox. She is breast feeding. Objective: Vitals: Cyclic fevers that spike at night, recently 102.3F Pulse 100, BP 131/84, RR 20, O2 98% in RA Exam: General: sitting in chair comfortably, NAD, A&O x3 Cardiac: 3/6 systolic murmur consistent with post- cardiac changes Lungs: CTAB, no w/c/r Abdomen: soft, non-distended, fundus firm with no tenderness at u-3cm, mild tenderness to palpation over epigastrium without rebound Incision: pfannensteil healing well with no erythema/induration/drainage Extremities: No edema of BLE Labs: 08/12 ESR 107, CRP 16.6 Blood culture negative Urine culture negative Rapid flu negative 08/16 CBC: 2.4/12.3/37.2/209 (never had WBC count greater than 3.8) CMP: 140/3.2/106/23/3/0.74/76 AST 79, ALT 60, amylase 94, lipase 589 Radiology: 08/16 RUQUS read pending 08/14 RUQUS and repeat pelvic/abdominal CT benign (normal post-op changes) 08/16 pelvic/abdominal CT, TVUS and CXR all essentially benign with normal post- op changes Assessment: Veena is a 26y/o s/p uncomplicated section on 08 August for breech presentation with PROM with benign post-op course, re- admitted on 12 August with high fever but no obvious source of infection, no elevated WBC count. She continues to have cyclic fevers with interval development of colicky epigastric pain with associated nausea/vomiting. Extensive workup performed as described in HPI with multiple imaging modalities , negative blood/urine cultures. Has received zosyn since admission with initiation of anti-coagulation (lovenox) this morning for possible septic pelvic thrombophlebitis, a diagnosis of exclusion. Repeat RUQUS performed earlier this evening for continued epigastric pain, result is pending. Plan: -Spoke with Hospitalist who will consult on Veena's care, we appreciate all recommendations -Awaiting read for repeat RUQUS -Continue routine hull care -Continue IVF LR at 125ml/hr -Diet as tolerated -Continue IV zosyn -Continue therapeutic lovenox -PO percocet prn pain vs morphine if continued PO intolerance -initiate IV protonix -Encourage ambulation and breast feeding Dr. Dorian De La Garza MD [place] ERVIN VS,Bryn, I+O VS, Bryn, I+O Laboratory Tests 08/16/16 18:22 Red Blood Count 4.07, Mean Corpuscular Volume 91.4, Mean Corpuscular Hemoglobin 30.3, Mean Corpuscular Hemoglobin Concent 33.2, Red Cell Distribution Width 13.7 , Calcium Level 7.9 L, Aspartate Amino Transf (AST/SGOT) 79 H, Alanine Aminotransferase (ALT/SGPT) 60, Alkaline Phosphatase 119 H, Total Bilirubin 0.3 , Total Protein 6.9 #, Albumin 2.2 #L Vital Signs Date Time Temp Pulse Resp B/P (MAP) Pulse Ox O2 Delivery O2 Flow Rate FiO2 08/16/16 18:54 102.3 08/16/16 16:48 100 20 131/84 (100) 98 Room Air I&O- Last 24 Hours up to 6 AM 08/16/16 06:00 Intake Total 1875 ml Output Total 1750 ml Balance 125 ml DORIAN DE LA GARZA MD August 16, 2016 20:44
[2016-08-16] MEDS ORDERED: MORPHINE 2 MG/ML 1ML SYRINGE IV PRN (20:45)
--- NOTE | 2016-08-16 21:20 | REPUSA ---
HISTORY: Vomiting, right upper quadrant pain. TECHNIQUE: Realtime sonographic images were obtained in multiple projections. FINDINGS: Compared to 08/14/16 study. The liver is of fatty echo texture without evidence of mass or defect. There is no intra or extrahep atic biliary ductal dilatation. The common bile duct measures 3.0 mm. The gallbladder is physiologi milla distended without evidence of calculi. The gallbladder wall measures 2.5 mm. There is perichol ecystic fluid versus ascites. The visualized portions of abdominal aorta present no abnormalities. The visualized portions of the pancreas are unremarkable. The spleen is of uniform echo texture and does not appear enlarged. The right kidney measures 11.1 x 4.5 x 4.5 cm and is free of hydronephrosi s. IMPRESSION: No change from prior. Fatty liver. Pericholecystic fluid versus ascites. Thank you for your kind referral of this patient. We appreciate the opportunity to participate in th is patient's care.
[2016-08-16] MEDS: PANTOPRAZOLE 40MG INJ (PROTONIX) (C9113) IV SCH (22:01)
[2016-08-16] MEDS: PERCOCET 5MG/325MG TAB PO PRN (22:01)
[2016-08-16] MEDS ORDERED: POTASSIUM CHLORIDE 10 MEQ SR TABLET PO ONE (22:15)
--- NOTE | 2016-08-16 22:33 | CR.PDOC ---
[facility] Consultation Consultation HOSPITALIST CONSULT NOTE Date of consult: 08/16/2016 Referring Provider: Dr. Maya De La Garza PCP: Ilda grimm Reason for Consult: Fever without a clear source HPI: 26-year-old who is approximately 8 days via section who returned to the hospital after being discharged from her delivery and was experiencing fever and chills. She states that since being admitted on August 12, she has continued to have fevers and chills and feel very weak. She notes that when she was at home, she felt like she could not take deep breaths without her lungs hurting, and she states that this has continued. She also reports that she has had some stomach pain, and over the last several days she has dry heaves with the stomach pain, but today, these dry heaves turned in the vomiting. She states that she thinks this may be related to food, but she is unsure if there is a clear connection. She also reports diarrhea for the last 2- 1/2 days. Since she has been here, she has had a mild leukopenia, and fevers consistently over 102 even up to 104. Initial blood and urine cultures were negative, and she has been on Zosyn since admission. She has a mild elevation of her AST and alkaline phosphatase, as well as lipase, and a right upper quadrant ultrasound shows mild thickening of the gallbladder wall with some sludge. Chest x-ray, as well as CT of the abdomen and pelvis are unremarkable for acute findings, and a pelvic ultrasound shows no evidence of retained products of conception. A flu screen is also negative. Past medical history: None Past surgical history: Appendectomy, recent section approximately one week ago Family history: No history of blood clots Social history: The patient does not smoke any tobacco. She resides with her . Allergies: No known drug allergies Review of systems: General: Positive for fever and chills Eyes:. Negative for Vision changes and ocular discharge ENT: Positive for sore throat, negative for nose bleed Cardiovascular: Positive for chest pain in the center of her chest that feels like a soreness whenever she takes a deep breath, negative for palpitations Respiratory: Positive for shortness of breath, negative for cough GI: Positive for nausea, vomiting, diarrhea Musculoskeletal: Positive for back pain. Negative for neck pain Skin: Negative for rash Neuro: Negative for numbness and tingling. Positive for headache and lightheadedness when standing Psych: Positive for depression, but negative for suicidal ideation Endocrine: Negative for polyuria : Positive for dysuria Heme: Positive for bruising around her scar, positive for vaginal bleeding associated with state Home meds: See below Physical exam: Vital signs: Vital Signs Date Time Temp Pulse Resp B/P (MAP) Pulse Ox O2 Delivery O2 Flow Rate FiO2 08/16/16 22:01 18 08/16/16 20:00 103.8 107 127/78 (94) 98 Room Air Gen.: awake, alert, no acute distress Eyes: Extraocular movements intact, normal sclera ENT: Moist mucous membranes Cardiovascular: RRR, no murmurs rubs or gallops Lungs: clear to auscultation bilaterally, no rales, rhonchi, or wheeze Abdomen: Soft, well healing Csection incision, TTP of RUQ, epigastrum, and LUQ Musculoskeletal: normal range of motion Extremities: 1+ peripheral edema, no calf pain or tenderness Neuro: alert and oriented 3, normal speech, no focal deficits Psych: Normal mood with congruent affect Labs and radiology: See below White count has ranged from 2.9-3.8 CRP 16.6 AST 79, alkaline phosphatase 119 Lipase around 500 Initial blood and urine cultures were negative Flu screen was negative CT of the abdomen and pelvis and chest x-ray were unremarkable for acute findings Pelvic ultrasound did not show any evidence of retained products of conception Gallbladder ultrasound showed mild wall thickness with moderate sludge Assessment and plan: 26-year-old who is approximately 8 days via section who returned to the hospital after being discharged from her delivery and was experiencing fever and chills. She has been admitted by OB, and has received a very thorough workup, however no source of the fever has been revealed. We have been consulted for further evaluation of her fever. 1. Fever: At this time, I would repeat her blood and urine cultures as the first set were now 4 days ago. She does not have any evidence of infection at her surgical site. She does report some diarrhea for several days, so I will also check a GI panel. Given her report of inability to take a deep breath, and chest pain associated with deep breaths, coupled with her recent surgery and gravid state, I think it is worth checking a CTA to rule out pulmonary embolism as a source of this fever. She denies any calf pain, and she does not have any asymmetrical swelling of her legs, so I do not think that bilateral lower extremity ultrasound is warranted at this time. I am, however, concerned that she might have acute cholecystitis. Her gallbladder ultrasound does not give a clear picture, but given her exam findings, as well as her laboratory findings of elevated AST, alkaline phosphatase, and lipase, I think that it would be of value to get a HIDA scan. She has been on Zosyn since admission, which I will leave at this time. If she does have acute cholecystitis, it seems odd that she continues to have fevers despite the Zosyn. She is clinically well-appearing at this time, so I do not see a need to escalate antibiotics while we continue to search for the source. Of course, if we identify a clear culprit, we can narrow or expand antibiotics at that time. Additionally, the patient has been started on treatment dose Lovenox today, which was for the possible diagnosis of exclusion of septic pelvic thrombophlebitis. I see no reason not to continue this at this time 2. Hypokalemia: Replace seen. Check magnesium. DVT prophylaxis: Treatment dose Lovenox Thank you for this consult. We will continue to follow along with you. Dr. Mckeon will assume coverage at 7 AM tomorrow morning. Vital Signs/I&O Vital Signs Date Time Temp Pulse Resp B/P (MAP) Pulse Ox O2 Delivery O2 Flow Rate FiO2 08/16/16 22:01 18 08/16/16 20:00 103.8 107 127/78 (94) 98 Room Air I&O- Last 24 Hours up to 6 AM 08/16/16 05:59 Intake Total 1995 ml Output Total 2350 ml Balance -355 ml Laboratory Data Labs 24H Laboratory Tests 2 08/16/16 18:22: Neutrophils 73, Band Neutrophils 5, Lymphocytes (Manual) 19, Monocytes (Manual) 3, Platelet Estimate NORMAL, Red Blood Cell Morphology NORMAL, Anion Gap 11, Glomerular Filtration Rate > 60.0, Blood Urea Nitrogen 3L, Creatinine 0.74, Sodium Level 140, Potassium Level 3.2L, Chloride Level 106, Carbon Dioxide Level 23, Calcium Level 7.9L, Aspartate Amino Transf (AST/SGOT) 79H, Alanine Aminotransferase (ALT/SGPT) 60, Alkaline Phosphatase 119H, Total Bilirubin 0.3, Total Protein 6.9#, Albumin 2.2#L, Albumin/Globulin Ratio 0.47L, Amylase Level 94, Lipase 589H CBC/BMP Laboratory Tests 08/16/16 18:22 Red Blood Count 4.07, Mean Corpuscular Volume 91.4, Mean Corpuscular Hemoglobin 30.3, Mean Corpuscular Hemoglobin Concent 33.2, Red Cell Distribution Width 13.7 , Calcium Level 7.9 L, Aspartate Amino Transf (AST/SGOT) 79 H, Alanine Aminotransferase (ALT/SGPT) 60, Alkaline Phosphatase 119 H, Total Bilirubin 0.3 , Total Protein 6.9 #, Albumin 2.2 #L Microbiology Microbiology 08/12/16 Blood Culture - Preliminary, Resulted No Growth after 72 hours. All specime... 08/12/16 Influenza Virus Type A Antigen - Final, Complete 08/12/16 Influenza Virus Type B Antigen - Final, Complete 08/12/16 Urine Culture - Final, Complete Allergies Coded Allergies: No Known Allergies (Unverified , 05/28/13) Home Medications Scheduled Multivitamins/ ( ) 1 Tab Tab, 1 TAB PO DAILY, (Reported) Scheduled PRN Acetaminophen (Mapap) 500 Mg Tab, 1,000 MG PO Q6H PRN for PAIN, (Reported) Calcium Carbonate (Tums) 500 Mg Chw, 1,000 MG PO PRN PRN for HEARTBURN, ( Reported) Ibuprofen (Ibuprofen) 800 Mg Tab, 800 MG PO Q8H PRN for PAIN, (Reported) Oxycodone/Acetaminophen (Oxycodone/Acetaminophen 5-325 mg) 1 Tab Tab, 1 TAB PO Q4H PRN for ABDOMINAL PAIN, (Reported) Polyethylene Glycol (Miralax) 1 Pow Pow, 17 GM PO DAILY PRN for CONSTIPATION, ( Reported) ETELVINA SPENCER August 16, 2016 22:33
[2016-08-16] MEDS: LR 1,000 ML IV SCH (23:00)
[2016-08-17] VITALS: BP 112/61
[2016-08-17] MEDS: PIPERACILLIN/TAZOBACTAM SOD 3.375 GM in D5W MINI-BAG PLUS 50 ML IV SCH ×4 (01:32→18:32)
[2016-08-17 04:00] VITALS: BP 109/63
[2016-08-17] MEDS: SLF 3 ML SYR IV SCH ×3 (06:00→22:05)
[2016-08-17] MEDS: ONDANSETRON 4MG/2ML VIAL (J2405) IV PRN ×2 (06:44→15:05)
[2016-08-17 07:31] LABS: WHITE BLOOD COUNT 3.3 K/mm3 (4.0-10.0)
[2016-08-17 07:32] LABS: MEAN CORPUSCULAR HEMOGLOBIN 30.4 pg (27.0-33.0); MEAN CORPUSCULAR HGB CONC 33.4 g/dl (32.0-36.5); MEAN CORPUSCULAR VOLUME 90.9 fl (80.0-96.0); NEUTROPHILS % 70.7 % (36.0-66.0); PLATELET COUNT, AUTOMATED 189 k/mm3 (150-450); RED CELL DISTRIBUTION WIDTH 13.6 % (11.5-14.5)
[2016-08-17 07:33] LABS: EOS % 0.1 % (0.0-3.0); LARGE UNSTAINED CELL # 0.1 K/mm3 (0.0-0.4); LARGE UNSTAINED CELL % 2.6 % (0.0-4.0); LYMPH # 0.8 K/mm3 (1.5-6.5); LYMPH % 25.3 % (24.0-44.0); MONO % 1.3 % (0.0-5.0); NEUTROPHILS # 2.3 K/mm3 (1.8-7.7)
[2016-08-17 08:00] VITALS: BP 136/75
[2016-08-17 08:05] LABS: ALBUMIN 1.7 GM/DL (3.2-5.2); ALBUMIN/GLOBULIN RATIO 0.46 (1.00-1.93); ALKALINE PHOSPHATASE 91 U/L (45-117); ALT/SGPT 48 U/L (12-78); ANION GAP 10 MEQ/L (8-16); AST/SGOT 68 U/L (15-37); BILIRUBIN,TOTAL 0.2 MG/DL (0.2-1.0); BLOOD UREA NITROGEN 5 MG/DL (7-18); CALCIUM LEVEL 7.5 MG/DL (8.5-10.1); CARBON DIOXIDE LEVEL 24 MEQ/L (21-32); CHLORIDE LEVEL 106 MEQ/L (98-107); CREATININE FOR GFR 0.77 MG/DL (0.55-1.02); GLOMERULAR FILTRATION RATE > 60.0 (>60); GLUCOSE, FASTING 77 MG/DL (70-105); MAGNESIUM LEVEL 1.7 MG/DL (1.8-2.4); SODIUM LEVEL 140 MEQ/L (136-145); TOTAL PROTEIN 5.4 GM/DL (6.4-8.2)
[2016-08-17] MEDS: ACETAMINOPHEN 500 MG TAB PO PRN (08:55)
[2016-08-17] MEDS: PANTOPRAZOLE 40MG INJ (PROTONIX) (C9113) IV SCH ×2 (08:56→20:04)
[2016-08-17] MEDS: ENOXAPARIN 80 MG/0.8 ML SYRINGE (J1650) SC SCH ×2 (08:57→20:04)
[2016-08-17] MEDS ORDERED: ISOVUE-370 76% 100ML VIAL (Q9967) As Ordered ONE ×2 (09:35→10:42)
--- NOTE | 2016-08-17 10:12 | IPNPDOC ---
Text Note Date of Service The patient was seen on 08/17/16. NOTE Daily Progress Note, HD 6, POD 9 Veena is a 26y/o s/p uncomplicated section on 08 August for breech presentation with PROM with benign post-op course, re-admitted on 12 August in the late evening with fever to 104F but no obvious source of infection. She has now undergone two abdominal/pelvic CT scans, TVUS, CXR, and RUQUS x2, which have all been essentially benign (some gallbladder sludge and wall thickening noted as well as small bowel intussusception at level of proximal jejunum with no associated bowel obstruction/perforation/pneumatosis intestinalis) with normal post-operative changes. She has also had negative blood and urine cultures as well as negative flu A and B. She was started on Zosyn 12 August despite no elevated WBC count, and has had daily cyclic fevers up to 103F. She was started on therapeutic lovenox on 08/16 for possible diagnosis of exclusion: septic pelvic thrombophlebitis. At time of admission she had no specific complaints other than the fevers/ chills. However, on 14 August she she started to have epigastric pain. This pain comes and goes, was not present at all on 08/15, but returned 08/16. When this pain spikes, she vomits. She notes she has not been able to keep any food or water down the last couple of days secondary to the pain and has had lack of appetite in general. Having loose, green stools. She notes this morning, however , that her epigastric pain improved greatly after receiving first dose IV protonix last night and dose of percocet. She notes feeling the sensation of hunger this morning for the first time in days, though she is currently NPO for HIDA scan. Still having episodes of fevers/chills- most recently at 0800. She denies any upper respiratory symptoms to include cough/congestion/sore throat. No dysuria. Lochia has been minimal, increased slightly after initiating lovenox. She is breast feeding. Objective: Vitals: Cyclic fevers, most recent 0800 this morning 102F Pulse 94, BP 136/75, RR 16, O2 98% in RA Exam: General: resting in bed comfortably, NAD, A&O x3 Cardiac: 3/6 systolic murmur consistent with post- cardiac changes Lungs: CTAB, no w/c/r Abdomen: soft, non-distended, fundus firm with no tenderness at u-3cm, very mild tenderness to palpation over epigastrium (decreased from last night) without rebound Incision: pfannensteil healing well with no erythema/induration/drainage Extremities: No edema of BLE Labs: 08/12 ESR 107, CRP 16.6 Blood culture negative Urine culture negative Rapid flu negative 08/17 CBC: 3.3/10.3/30.9/189 (never had WBC count greater than 3.8) CMP: 140/3/106/24/5/0.77/77 AST 68, ALT 48, CRP 9.2, Mg 1.7, Ca 7.5 08/16 repeat blood cultures pending amylase 94, lipase 589 Radiology: 08/16 RUQUS repeated, no changes 08/14 RUQUS and repeat pelvic/abdominal CT benign (normal post-op changes) 08/16 pelvic/abdominal CT, TVUS and CXR all essentially benign with normal post- op changes Assessment: Veena is a 26y/o s/p uncomplicated section on 08 August for breech presentation with PROM with benign immediate post-op course , re-admitted on 12 August with high fever but no obvious source of infection, no elevated WBC count. She continues to have cyclic fevers with interval development of colicky epigastric pain with associated nausea/vomiting. Extensive workup performed as described in HPI with multiple imaging modalities , negative blood/urine cultures. Has received zosyn since admission with initiation of anti-coagulation (lovenox) on 08/16 for possible septic pelvic thrombophlebitis, a diagnosis of exclusion. Repeat RUQUS performed last night for continued epigastric pain, no changes. Epigastric pain decreased after starting IV protonix, appetite has returned. IM was consulted last night and has evaluated Veena with recommendations made. Plan: -We greatly appreciate IM recommendations: HIDA scan today and CTPA, repeat blood cultures, replete electrolytes prn -Continue routine hull care -Continue IVF LR at 100ml/hr -Diet as tolerated after HIDA scan (NPO until then) -Continue IV zosyn, though might consider discontinuing given no improvement in fevers despite 6 days of use -Continue therapeutic lovenox -PO percocet prn pain vs morphine while NPO -Continue IV protonix -Encourage ambulation and breast feeding Dr. Dorian De La Garza MD [facility] VS,[place], I+O VS, Bryn, I+O Laboratory Tests 08/16/16 18:22 Red Blood Count 4.07, Mean Corpuscular Volume 91.4, Mean Corpuscular Hemoglobin 30.3, Mean Corpuscular Hemoglobin Concent 33.2, Red Cell Distribution Width 13.7 , Calcium Level 7.9 L, Aspartate Amino Transf (AST/SGOT) 79 H, Alanine Aminotransferase (ALT/SGPT) 60, Alkaline Phosphatase 119 H, Total Bilirubin 0.3 , Total Protein 6.9 #, Albumin 2.2 #L 08/17/16 07:07 Red Blood Count 3.40 L, Mean Corpuscular Volume 90.9, Mean Corpuscular Hemoglobin 30.4, Mean Corpuscular Hemoglobin Concent 33.4, Red Cell Distribution Width 13.6, Calcium Level 7.5 L, Aspartate Amino Transf (AST/SGOT) 68 H, Alanine Aminotransferase (ALT/SGPT) 48, Alkaline Phosphatase 91, Total Bilirubin 0.2, Total Protein 5.4 #L, Albumin 1.7 #L, Corrected White Blood Count , Neutrophils (%) (Auto) 70.7 H, Lymphocytes (%) (Auto) 25.3, Monocytes (% ) (Auto) 1.3, Eosinophils (%) (Auto) 0.1, Basophils (%) (Auto) 0.0, Neutrophils # (Auto) 2.3, Lymphocytes # (Auto) 0.8 L, Monocytes # (Auto) 0.0, Eosinophils # (Auto) 0.0, Basophils # (Auto) 0.0 Vital Signs Date Time Temp Pulse Resp B/P (MAP) Pulse Ox O2 Delivery O2 Flow Rate FiO2 08/17/16 09:31 100.0 08/17/16 08:00 94 16 136/75 (95) 98 Room Air I&O- Last 24 Hours up to 6 AM 08/17/16 06:00 Intake Total 1690 ml Output Total 2100 ml Balance -410 ml DORIAN DE LA GARZA MD August 17, 2016 10:11
[2016-08-17 12:35] VITALS: BP 125/82
--- NOTE | 2016-08-17 13:34 | REP ---
Hepatobiliary scan: History: Abdominal pain. Comparison study: December 14, 2015. Technique: 5.9 mCi technetium 99m mebrofenin is injected and sequential anterior abdominal images are acquired. Findings: The initial hepatocellular parenchymal uptake phase is normal and homogeneous. The gallbladder is first labeled along with intra- and extrahepatic bile ducts and the duodenum on the 10-minute image. Subsequent scans demonstrate washout from the liver parenchyma into the gallbladder and small intestine. Impression: Normal hepatobiliary scan. Signed by Jostin Leonard MD 08/17/2016 01:47 P
--- NOTE | 2016-08-17 13:44 | REP ---
CT pulmonary angiogram: With IV contrast. History: Abdominal pain. Fever and shortness of breath. Recent delivery. Comparison studies: No comparison study. Contrast dose: 75 cc's of Isovue [address] technique: Helical scanning is acquired and overlapping 1.5 mm and contiguous 3 mm axial images are reformatted. In addition, a 3-D work station is deployed to generate thick slab maximum intensity projection images in sagittal and coronal imaging projections. CT pulmonary angiographic findings: There is good opacification of the pulmonary arterial tree and there is no CT evidence of pulmonary embolism. Thoracic aorta enhances homogeneously and is normal in caliber and course. No aneurysm or dissection is seen. There are small to moderate bilateral pleural effusions noted. There is a small amount of diffuse abdominal ascites seen. The amount of pleural fluid and the amount of upper abdominal ascites are increased somewhat from the study done August 14, 2016. The lung perkins are otherwise clear. No evidence of interstitial disease seen. Maximal intensity projection images show no evidence of filling defect or vessel cutoff. Impression: 1. No CT evidence of pulmonary embolism. 2. Small to moderate bilateral pleural effusions and mild upper abdominal ascites, increased somewhat from August 14, 2016.3. Otherwise unremarkable CT pulmonary angiogram. Signed by Jostin Leonard MD 08/17/2016 01:47 P
[2016-08-17] MEDS: PERCOCET 5MG/325MG TAB PO PRN (15:06)
[2016-08-17] MEDS: LR 1,000 ML IV SCH ×2 (15:10→20:03)
[2016-08-17 16:00] VITALS: BP 125/79
[2016-08-17] MEDS ORDERED: MAG SULF 1GM/100ML (MAG RUN) 1 GM in APPROPRIATE DILUENT 1 EA IV ONE (16:00)
[2016-08-17] MEDS: POTASSIUM CHLORIDE 10 MEQ SR TABLET PO SCH (16:03)
--- NOTE | 2016-08-17 16:21 | IPNPDOC ---
Subjective Date Seen The patient was seen on 08/17/16. Subjective Chief Complaint/HPI The patient is a 26-year-old female admitted with a reason for visit of FEVER. Events since last encounter pt seen and examined, fells better now Constitutional: Denies: Chills, Fever, Night Sweats Cardiovascular: Denies: Chest Pain, Palpitations, Orthopnea, Paroxysmal Noc. Dyspnea, Lt Headedness Gastrointestinal: Reports: Abdominal Pain, Denies: Nausea, Vomiting, Diarrhea, Constipation Objective Physical Examination General Exam: Positive: Alert, No Acute Distress Chest Exam: Positive: Clear to auscultation, Normal air movement Heart Exam: Positive: Rate Normal, Regular Rhythm, Normal S1, Normal S2, Negative: Murmurs, Rubs Abdomen Exam: Positive: Normal bowel sounds, Soft, Tenderness, Negative: Hepatospenomegaly Extremity Exam: Positive: Normal pulses, Negative: Clubbing, Cyanosis, Edema Assessment /Plan Problems (1) Fever Status: Acute Problem Text: * urine, blood, and gi panel cultures negative * cta negative for pe * consult dr flores (2) Hypomagnesemia Status: Acute (3) Hypokalemia Status: Acute Plan/VTE VTE Prophylaxis Ordered?: Yes [facility] Vital Signs Date Time Temp Pulse Resp B/P (MAP) Pulse Ox O2 Delivery O2 Flow Rate FiO2 08/17/16 15:45 20 08/17/16 12:35 98.7 83 125/82 (96) 98 Room Air I&O- Last 24 Hours up to 6 AM 08/17/16 06:00 Intake Total 1690 ml Output Total 2100 ml Balance -410 ml Laboratory Data 24H LABS Laboratory Tests 2 08/16/16 18:22: Neutrophils 73, Band Neutrophils 5, Lymphocytes (Manual) 19, Monocytes (Manual) 3, Platelet Estimate NORMAL, Red Blood Cell Morphology NORMAL, Anion Gap 11, Glomerular Filtration Rate > 60.0, Blood Urea Nitrogen 3L, Creatinine 0.74, Sodium Level 140, Potassium Level 3.2L, Chloride Level 106, Carbon Dioxide Level 23, Calcium Level 7.9L, Aspartate Amino Transf (AST/SGOT) 79H, Alanine Aminotransferase (ALT/SGPT) 60, Alkaline Phosphatase 119H, Total Bilirubin 0.3, Total Protein 6.9#, Albumin 2.2#L, Albumin/Globulin Ratio 0.47L, Amylase Level 94, Lipase 589H 08/17/16 07:07: Anion Gap 10, Glomerular Filtration Rate > 60.0, Blood Urea Nitrogen 5#L, Creatinine 0.77, Sodium Level 140, Potassium Level 3.0L, Chloride Level 106, Carbon Dioxide Level 24, Calcium Level 7.5L, Aspartate Amino Transf (AST/SGOT) 68H, Alanine Aminotransferase (ALT/SGPT) 48, Alkaline Phosphatase 91, Total Bilirubin 0.2, Total Protein 5.4#L, Albumin 1.7#L, Albumin/Globulin Ratio 0.46L , White Blood Count 3.3L, Corrected White Blood Count , Red Blood Count 3.40L, Hemoglobin 10.3#L, Hematocrit 30.9L, Mean Corpuscular Volume 90.9, Mean Corpuscular Hemoglobin 30.4, Mean Corpuscular Hemoglobin Concent 33.4, Red Cell Distribution Width 13.6, Platelet Count 189, Neutrophils (%) (Auto) 70.7H, Lymphocytes (%) (Auto) 25.3, Monocytes (%) (Auto) 1.3, Eosinophils (%) (Auto) 0.1, Basophils (%) (Auto) 0.0, Neutrophils # (Auto) 2.3, Lymphocytes # (Auto) 0.8L, Monocytes # (Auto) 0.0, Eosinophils # (Auto) 0.0, Basophils # (Auto) 0.0, Large Unclassified Cells % 2.6, Large Unclassified Cells # 0.1, Magnesium Level 1.7L, C-Reactive Protein, Quantitative 9.20H CBC/BMP Laboratory Tests 08/16/16 18:22 Red Blood Count 4.07, Mean Corpuscular Volume 91.4, Mean Corpuscular Hemoglobin 30.3, Mean Corpuscular Hemoglobin Concent 33.2, Red Cell Distribution Width 13.7 , Calcium Level 7.9 L, Aspartate Amino Transf (AST/SGOT) 79 H, Alanine Aminotransferase (ALT/SGPT) 60, Alkaline Phosphatase 119 H, Total Bilirubin 0.3 , Total Protein 6.9 #, Albumin 2.2 #L 08/17/16 07:07 Red Blood Count 3.40 L, Mean Corpuscular Volume 90.9, Mean Corpuscular Hemoglobin 30.4, Mean Corpuscular Hemoglobin Concent 33.4, Red Cell Distribution Width 13.6, Calcium Level 7.5 L, Aspartate Amino Transf (AST/SGOT) 68 H, Alanine Aminotransferase (ALT/SGPT) 48, Alkaline Phosphatase 91, Total Bilirubin 0.2, Total Protein 5.4 #L, Albumin 1.7 #L, Corrected White Blood Count , Neutrophils (%) (Auto) 70.7 H, Lymphocytes (%) (Auto) 25.3, Monocytes (% ) (Auto) 1.3, Eosinophils (%) (Auto) 0.1, Basophils (%) (Auto) 0.0, Neutrophils # (Auto) 2.3, Lymphocytes # (Auto) 0.8 L, Monocytes # (Auto) 0.0, Eosinophils # (Auto) 0.0, Basophils # (Auto) 0.0 Microbiology Microbiology 08/16/16 Blood Culture, Received Pending 08/16/16 Blood Culture, Received Pending 08/12/16 Blood Culture - Final, Complete NO GROWTH AFTER 5 DAYS 08/17/16 Gastrointestinal Tract Panel (PCR) - Final, Complete 08/12/16 Influenza Virus Type A Antigen - Final, Complete 08/12/16 Influenza Virus Type B Antigen - Final, Complete 08/17/16 Urine Culture, Received Pending 08/12/16 Urine Culture - Final, Complete PREM CHICAS DO August 17, 2016 16:21
[2016-08-17 20:00] VITALS: BP 139/90
[2016-08-18] VITALS: BP 135/73
[2016-08-18] MEDS: ONDANSETRON 4MG/2ML VIAL (J2405) IV PRN ×4 (00:07→23:13)
[2016-08-18] MEDS: ACETAMINOPHEN 500 MG TAB PO PRN ×2 (00:08→18:28)
[2016-08-18] MEDS: PIPERACILLIN/TAZOBACTAM SOD 3.375 GM in D5W MINI-BAG PLUS 50 ML IV SCH ×2 (01:22→06:25)
[2016-08-18 04:00] VITALS: BP 118/68
[2016-08-18] MEDS: LR 1,000 ML IV SCH ×2 (06:25→16:15)
[2016-08-18] MEDS: SLF 3 ML SYR IV SCH ×3 (06:25→20:08)
--- NOTE | 2016-08-18 06:59 | IPNPDOC ---
Text Note Date of Service The patient was seen on 08/18/16. NOTE Subjective Date Seen The patient was seen on 08/18/16 at 0630 Subjective Chief Complaint/HPI The patient is a 26-year-old female admitted with a reason for visit of FEVER OF UNKNOWN ORIGIN, currently being treated with Zosyn and therapeutic Lovenox for diagnosis of exclusion: septic pelvic thrombophlebitis. Events since last encounter pt seen and examined, fells better now however overnight had fevers again, afebrile until MN: 104.1, 0300: 100.4. Even though feels overall well when not febrile, states still having upper abdom pain and is reulctant to eat Constitutional: Denies: Chills, pain other than in midepigastrium Cardiovascular: Denies: Chest Pain, Palpitations, Orthopnea, Paroxysmal Noc. Dyspnea, Lt Headedness Gastrointestinal: Reports: Abdominal Pain, Denies: Nausea, Vomiting, Diarrhea, Constipation Objective Objective Physical Examination General Exam: Positive: Alert, No Acute Distress Chest Exam: Positive: Clear to auscultation, Normal air movement Heart Exam: Positive: Rate Normal, Regular Rhythm, Normal S1, Normal S2, Negative: Murmurs, Rubs Abdomen Exam: Positive: Normal bowel sounds, Soft, Tenderness over epigastrium , Negative: Hepatospenomegaly Extremity Exam: Positive: Normal pulses, Negative: Clubbing, Cyanosis, Edema No CVAT bilat Assessment/Plan (1) Fever of UO Problem Text: * rpt urine cx from 11may still pending, blood, and gi panel cultures negative from 11may * 11may imaging: cta negative for pe, hida scan also neg * awaiting consultation from dr flores, perhaps d/c the Zosyn due to unclear infection source and low WBC throughout??? * appreciate ID and Hospitalist services assistance and opinion * Continue the BID therapeutic Lovenox * Consider GI consult for upper endoscopy, overall review??? VS,Bryn, I+O VS, Bryn, I+O Laboratory Tests 08/17/16 07:07 Corrected White Blood Count , Red Blood Count 3.40 L, Mean Corpuscular Volume 90.9, Mean Corpuscular Hemoglobin 30.4, Mean Corpuscular Hemoglobin Concent 33.4 , Red Cell Distribution Width 13.6, Neutrophils (%) (Auto) 70.7 H, Lymphocytes ( %) (Auto) 25.3, Monocytes (%) (Auto) 1.3, Eosinophils (%) (Auto) 0.1, Basophils (%) (Auto) 0.0, Neutrophils # (Auto) 2.3, Lymphocytes # (Auto) 0.8 L, Monocytes # (Auto) 0.0, Eosinophils # (Auto) 0.0, Basophils # (Auto) 0.0, Calcium Level 7.5 L, Aspartate Amino Transf (AST/SGOT) 68 H, Alanine Aminotransferase (ALT/ SGPT) 48, Alkaline Phosphatase 91, Total Bilirubin 0.2, Total Protein 5.4 #L, Albumin 1.7 #L Vital Signs Date Time Temp Pulse Resp B/P (MAP) Pulse Ox O2 Delivery O2 Flow Rate FiO2 08/18/16 04:00 99.1 79 20 118/68 (85) 96 Room Air I&O- Last 24 Hours up to 6 AM 08/18/16 06:00 Intake Total 2420 ml Output Total 1925 ml Balance 495 ml CHHAYA,AVI Schumacher MD August 18, 2016 06:59
[2016-08-18 07:16] LABS: BASO % 0.4 % (0.0-1.0); EOS % 0.2 % (0.0-3.0); LARGE UNSTAINED CELL # 0.1 K/mm3 (0.0-0.4); LARGE UNSTAINED CELL % 2.8 % (0.0-4.0); LYMPH # 0.8 K/mm3 (1.5-6.5); LYMPH % 19.7 % (24.0-44.0); MEAN CORPUSCULAR HEMOGLOBIN 29.4 pg (27.0-33.0); MEAN CORPUSCULAR HGB CONC 32.9 g/dl (32.0-36.5); MEAN CORPUSCULAR VOLUME 89.4 fl (80.0-96.0); MONO # 0.1 K/mm3 (0.0-0.8); MONO % 2.8 % (0.0-5.0); NEUTROPHILS # 2.7 K/mm3 (1.8-7.7); NEUTROPHILS % 74.1 % (36.0-66.0); PLATELET COUNT, AUTOMATED 203 k/mm3 (150-450); RED CELL DISTRIBUTION WIDTH 13.8 % (11.5-14.5); WHITE BLOOD COUNT 3.6 K/mm3 (4.0-10.0)
[2016-08-18 07:57] LABS: ALBUMIN 1.8 GM/DL (3.2-5.2); ALBUMIN/GLOBULIN RATIO 0.58 (1.00-1.93); ALKALINE PHOSPHATASE 83 U/L (45-117); ALT/SGPT 46 U/L (12-78); ANION GAP 9 MEQ/L (8-16); AST/SGOT 69 U/L (15-37); BILIRUBIN,TOTAL 0.2 MG/DL (0.2-1.0); BLOOD UREA NITROGEN 3 MG/DL (7-18); CALCIUM LEVEL 6.9 MG/DL (8.5-10.1); CARBON DIOXIDE LEVEL 24 MEQ/L (21-32); CHLORIDE LEVEL 108 MEQ/L (98-107); GLOMERULAR FILTRATION RATE > 60.0 (>60); GLUCOSE, FASTING 72 MG/DL (70-105); MAGNESIUM LEVEL 1.9 MG/DL (1.8-2.4); POTASSIUM SERUM 3.6 MEQ/L (3.5-5.1); SODIUM LEVEL 141 MEQ/L (136-145); TOTAL PROTEIN 4.9 GM/DL (6.4-8.2)
[2016-08-18 08:00] VITALS: BP 109/66
[2016-08-18] MEDS: PANTOPRAZOLE 40MG INJ (PROTONIX) (C9113) IV SCH ×2 (08:17→20:29)
[2016-08-18] MEDS: ENOXAPARIN 80 MG/0.8 ML SYRINGE (J1650) SC SCH ×2 (08:18→20:29)
[2016-08-18] MEDS: POTASSIUM CHLORIDE 10 MEQ SR TABLET PO SCH (08:18)
[2016-08-18] MEDS: PERCOCET 5MG/325MG TAB PO PRN (08:48)
[2016-08-18 09:07] LABS: CONTROL LINE MONO RF C INT CTR LINE PRESENT
[2016-08-18] MEDS ORDERED: PERCOCET 5MG/325MG TAB PO PRN (11:30)
[2016-08-18] MEDS: SUCRALFATE 1 GM TAB PO SCH ×2 (11:57→16:53)
[2016-08-18 12:00] VITALS: BP 101/57
[2016-08-18 16:00] VITALS: BP 134/87
[2016-08-18] MEDS: D5W/LR 1,000 ML IV SCH (19:44)
[2016-08-18 20:00] VITALS: BP 120/70
[2016-08-18] MEDS ORDERED: SUCRALFATE SUSP 1GM/10ML UD PO SCH (20:44)
[2016-08-18] MEDS: SUCRALFATE SUSP 1GM/10ML UD PO SCH (20:48)
--- NOTE | 2016-08-18 21:05 | ECHO ---
DATE OF PROCEDURE: 08/18/2016 DATE OF : 1990 AGE: 26 REFERRING PROVIDER: Dr. Smith Jacobs PATIENT LOCATION: Room 4111. REASON FOR THE ECHOCARDIOGRAM: Fever. 2D MEASUREMENTS: IVS: 0.8 cm LV: 5.0 cm LVPW: 0.9 cm LA: 3.4 cm Aorta: 3.1 cm DOPPLER MEASUREMENTS: Peak velocity across the aortic valve: 1.5 m/s Peak velocity across the LVOT: 1.0 m/s Mitral E 1.1, mitral A 0.49 with a ratio of 2.2 Maximum tricuspid valve velocity: 2.7 m/s 2D COMMENTS: 1. Normal left ventricular size, wall thickness and normal global left ventricular systolic function with an estimated global left ventricular systolic ejection fraction of 60-65%. 2. Normal left atrium. Normal right atrium and right ventricle. 3. The atrial septum appeared to be normal without evidence of defect or shunt. 4. Normal aortic root. 5. Trace pericardial effusion noted, no evidence of cardiac tamponade. 6. The aortic valve appeared to be normal. There was a small echogenic structure noted on the atrial side of the mitral valve, could not rule out a vegetations. The tricuspid valve and the pulmonic valve appear to be normal. The proximal pulmonary artery branches appear to be normal in size. DOPPLER: It detects mild to moderate mitral regurgitation, moderate tricuspid regurgitation and mild . The calculated pulmonary artery systolic pressure varies between 30-40 mmHg. Assessment of the left ventricular diastolic function appeared to be normal. IMPRESSION: 1. Normal global left ventricular systolic and diastolic function. 2. Mild to moderate mitral regurgitation. 3. Moderate tricuspid regurgitation with mild pulmonary hypertension. 4. Trace pericardial effusion noted, no evidence of cardiac tamponade. 5. Could not rule out vegetations on the atrial side of the mitral valve leaflet. Therefore, in view of her history and the above findings, I would strongly recommend a transesophageal echocardiogram.
[2016-08-18 21:08] LABS: ALBUMIN 1.9 GM/DL (3.2-5.2); ALBUMIN/GLOBULIN RATIO 0.61 (1.00-1.93); ALKALINE PHOSPHATASE 82 U/L (45-117); ALT/SGPT 47 U/L (12-78); ANION GAP 12 MEQ/L (8-16); AST/SGOT 65 U/L (15-37); BILIRUBIN,TOTAL 0.2 MG/DL (0.2-1.0); BLOOD UREA NITROGEN 3 MG/DL (7-18); CALCIUM LEVEL 7.2 MG/DL (8.5-10.1); CARBON DIOXIDE LEVEL 21 MEQ/L (21-32); CHLORIDE LEVEL 108 MEQ/L (98-107); CREATININE FOR GFR 0.54 MG/DL (0.55-1.02); GLOMERULAR FILTRATION RATE > 60.0 (>60); GLUCOSE, FASTING 76 MG/DL (70-105); POTASSIUM SERUM 3.7 MEQ/L (3.5-5.1); SODIUM LEVEL 141 MEQ/L (136-145)
[2016-08-19] VITALS (10 sets, daily range): BP systolic 119–140; BP diastolic 76–93
[2016-08-19] MEDS: ONDANSETRON 4MG/2ML VIAL (J2405) IV PRN ×2 (04:58→16:36)
[2016-08-19] MEDS: D5W/LR 1,000 ML IV SCH ×2 (04:59→16:36)
[2016-08-19] MEDS: ACETAMINOPHEN 500 MG TAB PO PRN (05:00)
[2016-08-19] MEDS: SLF 3 ML SYR IV SCH ×3 (05:05→20:41)
[2016-08-19 06:31] LABS: BASO % 0.3 % (0.0-1.0); EOS % 0.3 % (0.0-3.0); LARGE UNSTAINED CELL # 0.2 K/mm3 (0.0-0.4); LARGE UNSTAINED CELL % 4.7 % (0.0-4.0); LYMPH # 0.9 K/mm3 (1.5-6.5); LYMPH % 20.1 % (24.0-44.0); MEAN CORPUSCULAR HEMOGLOBIN 29.5 pg (27.0-33.0); MEAN CORPUSCULAR HGB CONC 33.4 g/dl (32.0-36.5); MEAN CORPUSCULAR VOLUME 88.3 fl (80.0-96.0); MONO # 0.1 K/mm3 (0.0-0.8); MONO % 2.9 % (0.0-5.0); NEUTROPHILS # 2.4 K/mm3 (1.8-7.7); NEUTROPHILS % 71.7 % (36.0-66.0); PLATELET COUNT, AUTOMATED 239 k/mm3 (150-450); RED CELL DISTRIBUTION WIDTH 13.7 % (11.5-14.5); WHITE BLOOD COUNT 3.4 K/mm3 (4.0-10.0)
[2016-08-19 06:58] LABS: ALBUMIN 1.8 GM/DL (3.2-5.2); ALBUMIN/GLOBULIN RATIO 0.56 (1.00-1.93); ALKALINE PHOSPHATASE 82 U/L (45-117); ALT/SGPT 40 U/L (12-78); ANION GAP 10 MEQ/L (8-16); AST/SGOT 50 U/L (15-37); BILIRUBIN,TOTAL 0.2 MG/DL (0.2-1.0); BLOOD UREA NITROGEN 2 MG/DL (7-18); CALCIUM LEVEL 7.2 MG/DL (8.5-10.1); CARBON DIOXIDE LEVEL 25 MEQ/L (21-32); CHLORIDE LEVEL 108 MEQ/L (98-107); CREATININE FOR GFR 0.57 MG/DL (0.55-1.02); GLOMERULAR FILTRATION RATE > 60.0 (>60); GLUCOSE, FASTING 93 MG/DL (70-105); MAGNESIUM LEVEL 1.7 MG/DL (1.8-2.4); POTASSIUM SERUM 3.4 MEQ/L (3.5-5.1); SODIUM LEVEL 143 MEQ/L (136-145)
[2016-08-19] MEDS: SUCRALFATE SUSP 1GM/10ML UD PO SCH ×4 (08:00→20:41)
[2016-08-19] MEDS: PANTOPRAZOLE 40MG INJ (PROTONIX) (C9113) IV SCH ×2 (09:56→20:41)
[2016-08-19] MEDS: POTASSIUM CHLORIDE 10 MEQ SR TABLET PO SCH (09:56)
--- NOTE | 2016-08-19 11:33 | CR ---
DATE OF CONSULTATION: 08/18/2016 Asked to consult by Dr. Mckeon for evaluation of fever of unknown origin. HISTORY OF PRESENT ILLNESS: Veena is a pleasant 26-year-old female who recently delivered a healthy baby on 08/08/2016. The patient was discharged home on 08/10/2016; and the day of discharge, she started having fevers postoperatively. The patient was admitted on 08/12/2016 with fevers up to 104 associated with shaking chills, headache, nausea, and vomiting. The patient had a white count of 2.9 up to 3.9. She was started on intravenous (IV) Zosyn for possible postoperative wound infection with no improvement. Lovenox was added to treat for possible septic phlebitis. The fever did not improve. The patient never had any pain in the incisional area or purulent discharge or redness. She describes the pain that she developed 2 days later in the epigastric area associated with vomiting, nausea. The patient is not able to keep anything down. She also has diarrhea, greenish stools that are watery. She states in between episodes of the fever, she does usually feel good but has no appetite. Her past medical history is pretty unrevealing. She has a history of abnormal liver function tests in December of 2015. AST was 40, ALT was 106. Hepatitis serology was negative. In 2013, she was admitted with abdominal pain, which initially was epigastric in origin. Her white count also was 4000, and she underwent an appendectomy by Dr. Gardiner. The pathology was read as early acute appendicitis. CT of the abdomen showed a fatty liver. What was interesting is that her white count was never elevated and was actually low. PAST SURGICAL HISTORY: Appendectomy, (C) section. SOCIAL HISTORY: She is . She lives with her , who is . She is originally from [place]. She has never traveled outside the [place]. Her has been healthy. She does not smoke, drink, or use alcohol. 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 FAMILY HISTORY: Nonrevealing. No autoimmune disease, rheumatoid arthritis, lupus, Crohn's, or others. Her mother and father are alive and well. Her mother is currently watching the children. She flew from [place]. LABORATORIES: White count is 3.6 but was down to 2.4, hemoglobin 10.5, hematocrit 32, platelets 203, 74% neutrophils, 90% lymphocytes, 3% monocytes. Sodium 141, potassium 3.6, chloride 108, bicarbonate 24, BUN 3, creatinine 0.7, glucose 72, calcium 6.9, magnesium 1.9, AST 69, ALT 46, alkaline phosphatase 83, CRP was 16.6 and currently 9.12, albumin 1.8, amylase 94, and lipase 589. MICROBIOLOGY: Influenza A and B was negative. Urine culture was negative. Blood cultures were negative, three sets. Gastrointestinal (GI) panel done on 08/17/2016 was negative for all pathogens, viral, bacterium, and parasitic. A repeat urine culture done on 08/17/2016 was negative. MEDICATIONS: - magnesium IV - Protonix 40 mg IV twice a day - morphine as needed - Percocet as needed - Zofran 8 mg IV every 8 as needed - Zosyn 3.375 grams IV every 6 hours - Tylenol as needed fever. - She is currently day #5 of IV Zosyn. ALLERGIES: No known drug allergies. On physical examination, Vital signs: Temperature is 99.4, pulse 90, respirations 18, blood pressure 101/57, oxygen (O2) saturation 96% on room air. Maximum temperature (Tmax) yesterday was 104.1. Heart: Normal S1, S2, with no murmurs, rubs, or gallops. Lungs are clear. No wheezes, rales, or rhonchi. Abdomen: Mildly tender in the epigastric area. No rebound. Pretty benign stomach. Back: No costovertebral angle (CVA) tenderness. Genitourinary (): Normal for age. Suprapubic incision of C section is clean and nontender. Feeling very well. Extremities: Trace edema. No clubbing, cyanosis, no rashes. Neurologic examination: Normal. Joint and musculoskeletal examination: Normal. There is no synovitis. Nuclear gallbladder scan shows normal. CT angiogram to rule out pulmonary embolism was negative except for small bilateral pleural effusion. Gallbladder ultrasound showed a common bile duct measuring 3 mm, fatty liver, and pericholecystic fluid versus ascites. Abdominal CT done on 08/14/2016: Enlarged post gravid uterus stable, small effusions, appearance of a small bowel intussusception at the level of the proximal jejunum with no associated bowel perforation, diffuse thickening of the wall of the bladder suggestive of cystitis. Gallbladder ultrasound shows mild wall thickening with a thickness of 5 mm and moderate sludge. Chest x-ray had no acute disease. IMPRESSION: This is a 26-year-old female, status post (C) section, 3 days postoperative, admitted with fever, epigastric pain, nausea, vomiting, diarrhea. The patient has been on 5 days of IV Zosyn and Lovenox for treatment of septic phlebitis with no improvement. Clinically, there is no pain in the area of the C section. There is no evidence of phlebitis by CT with contrast. There is concern of epigastric pain mostly with vomiting and the patient not being able to keep anything down. One of this case has question of possibility of a jejunal intussusception. That would not explain the fever. PLAN: Consult GI. I have talked to Dr. Finch, who agreed to see her. She may benefit from endoscopy. I am not sure if she might have some autoimmune disease as a cause of these fevers, such as inflammatory bowel disease, lupus, or other autoimmune disease. For nausea and vomiting, start Carafate 1 gram before food and at bedtime. Continue Reglan and proton pump inhibitor (PPI). Autoimmune workup was ordered, including rheumatoid factor, antinuclear antibody (ROBERTO CARLOS). Other possible etiologies for fever with abnormal liver function tests, abdominal pain, could be Olya-Hardwick virus. CMV mononucleosis screen was done and was negative. HIV testing was negative. If the patient persists with fevers, could consider a trial of prednisone after she is seen by Dr. Finch. Discontinue Zosyn and Lovenox. The patient does not have a bacterial infection at this time.
[2016-08-19] MEDS ORDERED: PROPOFOL 500 MG/50 ML VIAL As Ordered ONE (12:37)
[2016-08-19] MEDS ORDERED: LIDOCAINE 2% INJ 100 MG/5 ML SDV (FOR ANES.) As Ordered ONE (12:37)
[2016-08-19] MEDS ORDERED: ONDANSETRON 4MG/2ML VIAL (J2405) As Ordered ONE (12:37)
[2016-08-19] MEDS ORDERED: dexameTHASONE 4 MG/ML 1ML VIAL (J1100) As Ordered ONE (12:37)
[2016-08-19] MEDS ORDERED: fentaNYL 100 MCG/2 ML INJECTION (J3010) As Ordered ONE (12:37)
[2016-08-19] MEDS ORDERED: SUCCINYLCHOLINE 100 MG/5 ML SYRINGE (J0330) As Ordered ONE (12:37)
[2016-08-19] MEDS ORDERED: ONDANSETRON 4MG/2ML VIAL (J2405) IV PRN (13:00)
[2016-08-19] MEDS ORDERED: LR 1,000 ML IV SCH (13:00)
[2016-08-19] MEDS ORDERED: fentaNYL 100 MCG/2 ML INJECTION (J3010) IV PRN (13:00)
[2016-08-19] MEDS ORDERED: PERCOCET 5MG/325MG TAB PO PRN (13:00)
[2016-08-19] MEDS ORDERED: HYDROmorphone HCL 1 MG/ML SYRINGE (J1170) IV PRN (13:00)
--- NOTE | 2016-08-19 22:59 | IPNPDOC ---
Subjective Date Seen The patient was seen on 08/19/16. Subjective Chief Complaint/HPI The patient is a 26-year-old female admitted with a reason for visit of FEVER. Constitutional: Reports: Chills, Fever Gastrointestinal: Reports: Nausea, Vomiting, Abdominal Pain Objective Physical Examination General Exam: Positive: Alert, No Acute Distress Chest Exam: Positive: Clear to auscultation, Normal air movement Heart Exam: Positive: Rate Normal, Regular Rhythm, Normal S1, Normal S2, Negative: Murmurs, Rubs Abdomen Exam: Positive: Normal bowel sounds, Soft, Tenderness, Negative: Hepatospenomegaly Extremity Exam: Positive: Normal pulses, Negative: Clubbing, Cyanosis, Edema Assessment /Plan Problems (1) Abdominal pain Status: Acute Problem Specific Plan: Consult Specialist Problem Text: egd in am with dr fried (2) Fever Status: Acute Problem Specific Plan: Consult Specialist Problem Text: * urine, blood, and gi panel cultures negative * cta negative for pe * consult dr flores * unknown etiology , autoimmune markers pending (3) Hypomagnesemia Status: Resolved (4) Hypokalemia Status: Acute Plan/VTE VTE Prophylaxis Ordered?: Yes VS, I&O, 24H, [facility] Vital Signs/I&O Vital Signs Date Time Temp Pulse Resp B/P (MAP) Pulse Ox O2 Delivery O2 Flow Rate FiO2 08/19/16 20:00 99.0 70 17 140/79 (99) 96 Room Air I&O- Last 24 Hours up to 6 AM 08/19/16 06:00 Intake Total 2014 ml Output Total 2175 ml Balance -161 ml Laboratory Data 24H LABS Laboratory Tests 2 08/19/16 06:03: White Blood Count 3.4L, Red Blood Count 3.45L, Hemoglobin 10.2L, Hematocrit 30.4L, Mean Corpuscular Volume 88.3, Mean Corpuscular Hemoglobin 29.5, Mean Corpuscular Hemoglobin Concent 33.4, Red Cell Distribution Width 13.7, Platelet Count 239, Neutrophils (%) (Auto) 71.7H, Lymphocytes (%) (Auto) 20.1L, Monocytes (%) (Auto) 2.9, Eosinophils (%) (Auto) 0.3, Basophils (%) (Auto) 0.3, Neutrophils # (Auto) 2.4, Lymphocytes # (Auto) 0.9L, Monocytes # (Auto) 0.1, Eosinophils # (Auto) 0.0, Basophils # (Auto) 0.0, Large Unclassified Cells % 4.7H, Large Unclassified Cells # 0.2, Anion Gap 10, Glomerular Filtration Rate > 60.0, Blood Urea Nitrogen 2L, Creatinine 0.57, Sodium Level 143, Potassium Level 3.4L, Chloride Level 108H, Carbon Dioxide Level 25, Calcium Level 7.2L, Aspartate Amino Transf (AST/SGOT) 50H, Alanine Aminotransferase (ALT/SGPT) 40, Alkaline Phosphatase 82, Total Bilirubin 0.2, Total Protein 5.0L, Albumin 1.8L, Magnesium Level 1.7L, C-Reactive Protein, Quantitative 10.00H, Albumin/Globulin Ratio 0.56L, Lipase 596H CBC/BMP Laboratory Tests 08/19/16 06:03 Red Blood Count 3.45 L, Mean Corpuscular Volume 88.3, Mean Corpuscular Hemoglobin 29.5, Mean Corpuscular Hemoglobin Concent 33.4, Red Cell Distribution Width 13.7, Neutrophils (%) (Auto) 71.7 H, Lymphocytes (%) (Auto) 20.1 L, Monocytes (%) (Auto) 2.9, Eosinophils (%) (Auto) 0.3, Basophils (%) ( Auto) 0.3, Neutrophils # (Auto) 2.4, Lymphocytes # (Auto) 0.9 L, Monocytes # ( Auto) 0.1, Eosinophils # (Auto) 0.0, Basophils # (Auto) 0.0, Calcium Level 7.2 L , Aspartate Amino Transf (AST/SGOT) 50 H, Alanine Aminotransferase (ALT/SGPT) 40 , Alkaline Phosphatase 82, Total Bilirubin 0.2, Total Protein 5.0 L, Albumin 1.8 L Microbiology Microbiology 08/16/16 Blood Culture - Preliminary, Resulted No Growth after 72 hours. All specime... 08/16/16 Blood Culture - Preliminary, Resulted No Growth after 72 hours. All specime... 08/12/16 Blood Culture - Final, Complete NO GROWTH AFTER 5 DAYS 08/17/16 Gastrointestinal Tract Panel (PCR) - Final, Complete 08/12/16 Influenza Virus Type A Antigen - Final, Complete 08/12/16 Influenza Virus Type B Antigen - Final, Complete 08/17/16 Urine Culture - Final, Complete 08/12/16 Urine Culture - Final, Complete PREM CHICAS DO August 19, 2016 22:59
[2016-08-20] VITALS: BP 133/81
[2016-08-20] MEDS: D5W/LR 1,000 ML IV SCH ×3 (01:46→20:20)
--- NOTE | 2016-08-20 03:19 | CR ---
DATE OF CONSULTATION: 08/19/2016 This is 26-year white female who has been admitted to [facility] ([facility]) for evaluation of gastric pain, nausea, vomiting and fevers of unknown etiology. The patient apparently had delivered her first baby on 08/08 via (C) section due to the fact that it was breech. She subsequently on 08/12 started developing high fevers and epigastric pain with nausea, vomiting. The patient has had an extensive workup including two abdominal CTs, pelvic ultrasound, chest x-ray, blood cultures, urinalysis, all of which showing only nonspecific findings. The findings from all of this testing has shown at some point or another an elevated sedimentation rate of 107. Lipase was rising from [address] showed on one study 12-hour sludge with one study suggesting intussusception of the bowel without evidence of any obstruction. There was no evidence of any biliary dilatation on CT scan or ultrasound. There was no intrahepatic dilatation. Pelvic ultrasound was negative for retained products of conception. Laboratory studies were essentially normal except for a neutropenia of 3800, albumin 1.8, two lipase levels which were elevated. HIDA scan with ejection fraction was normal. The patient was being seen by gastrointestinal (GI) for evaluation of epigastric pain and nausea, vomiting. SOCIAL HISTORY: Cigarettes, alcohol negative. ALLERGIES: No known declared allergies. MEDICATIONS: None. REVIEW OF SYSTEMS: 12-point review of systems is negative other than above problem. FAMILY HISTORY: Noncontributory to the above problem. PHYSICAL EXAMINATION: Well-developed, well-nourished white female in no acute distress. Appears stated age. Chest was clear to auscultation. Cardiovascular exam showed regular rhythm. 2/6 systolic ejection murmur. Abdomen was soft. Positive epigastric tenderness. No hepatosplenomegaly. Bowel sounds are positive. Extremities: No cyanosis, clubbing, edema. ANALYSIS: Epigastric pain, nausea, vomiting, fevers up to 104 of unknown etiology. At the present time, the patient will undergo upper endoscopy to evaluate any stomach etiologies for her pain and nausea, vomiting. The patient has had echocardiogram of the heart, which was essentially negative except for some possibility of mild pulmonary hypertension and mild regurgitation of her valves. Recommendation by the loan consultant on the echocardiogram suggested that she should have a transesophageal echocardiogram (JESSE). They could not rule out vegetations on the valves. Blood cultures, however, have been negative. At the present time, the elevation of her lipase suggests some kind of a pancreatic etiology. It is possible that she may have passed sludge or gravel or that may have triggered an episode of pancreatitis, which is causing her to have pain and more swelling. Plan will be to set the patient up for an upper endoscopy to rule out upper gastrointestinal (GI) causes for her symptoms and if all these studies continue to be negative, then we will be waiting for the autoimmune testing results to come back. The possibility for lupus is being entertained as the cause of her fevers. We will continue intravenous (IV) fluids and pain medication and medications to control her symptoms if this is pancreatitis or may need just more time to let it resolve.
[2016-08-20 04:00] VITALS: BP 133/73
[2016-08-20] MEDS: SLF 3 ML SYR IV SCH ×3 (04:23→20:29)
[2016-08-20 06:25] LABS: EOS % 0.1 % (0.0-3.0); LARGE UNSTAINED CELL # 0.3 K/mm3 (0.0-0.4); LARGE UNSTAINED CELL % 7.3 % (0.0-4.0); LYMPH # 0.9 K/mm3 (1.5-6.5); LYMPH % 18.1 % (24.0-44.0); MEAN CORPUSCULAR HEMOGLOBIN 29.7 pg (27.0-33.0); MEAN CORPUSCULAR HGB CONC 33.2 g/dl (32.0-36.5); MEAN CORPUSCULAR VOLUME 89.4 fl (80.0-96.0); MONO # 0.2 K/mm3 (0.0-0.8); MONO % 4.4 % (0.0-5.0); NEUTROPHILS # 2.4 K/mm3 (1.8-7.7); PLATELET COUNT, AUTOMATED 303 k/mm3 (150-450); RED CELL DISTRIBUTION WIDTH 13.7 % (11.5-14.5); WHITE BLOOD COUNT 3.5 K/mm3 (4.0-10.0)
[2016-08-20 06:49] LABS: ALBUMIN 1.7 GM/DL (3.2-5.2); ALBUMIN/GLOBULIN RATIO 0.47 (1.00-1.93); ALKALINE PHOSPHATASE 80 U/L (45-117); ALT/SGPT 32 U/L (12-78); ANION GAP 8 MEQ/L (8-16); AST/SGOT 31 U/L (15-37); BILIRUBIN,TOTAL 0.2 MG/DL (0.2-1.0); BLOOD UREA NITROGEN 2 MG/DL (7-18); CARBON DIOXIDE LEVEL 28 MEQ/L (21-32); CHLORIDE LEVEL 109 MEQ/L (98-107); CREATININE FOR GFR 0.53 MG/DL (0.55-1.02); GLOMERULAR FILTRATION RATE > 60.0 (>60); GLUCOSE, FASTING 128 MG/DL (70-105); MAGNESIUM LEVEL 1.8 MG/DL (1.8-2.4); POTASSIUM SERUM 3.9 MEQ/L (3.5-5.1); SODIUM LEVEL 145 MEQ/L (136-145); TOTAL PROTEIN 5.3 GM/DL (6.4-8.2)
[2016-08-20] MEDS: POTASSIUM CHLORIDE 10 MEQ SR TABLET PO SCH (08:33)
[2016-08-20] MEDS: SUCRALFATE SUSP 1GM/10ML UD PO SCH ×4 (08:33→20:29)
[2016-08-20] MEDS: PANTOPRAZOLE 40MG INJ (PROTONIX) (C9113) IV SCH ×2 (08:33→20:20)
[2016-08-20 08:55] VITALS: BP 131/76
--- NOTE | 2016-08-20 08:59 | IPNPDOC ---
Text Note Date of Service The patient was seen on 08/20/16. NOTE Daily Progress Note, HD 9, POD 12 Veena is a 26y/o s/p uncomplicated section on 08 August for breech presentation with PROM with benign post-op course, re-admitted on 12 August with fever to 104F but no obvious source of infection, but over the course of her admission has had continued cyclic fevers up to 102F. WBC count has been low rather than elevated. Within two days of her admission she developed PO intolerance with n/v. She has now undergone two abdominal/pelvic CT scans, TVUS , CXR, and RUQUS x2, CTPA, HIDA scan, and upper endoscopy which have all been essentially benign. She was trialed on lovenox for possible septic pelvic thrombophlebitis with no resolution of fevers and received zosyn for the first 6 days of her admission. We consulted the Hospitalist, ID and GI services and appreciate their recommendations for work-up. She has had testing for HIV, EBV, SLE, RA, and a GI panel which have all been unrevealing. She has had negative blood and urine cultures as well as negative flu A and B. She underwent TTE which could not rule cardiac valvular vegetations, so has been recommended to have JESSE which she is scheduled for tomorrow morning. At time of admission she had no specific complaints other than the fevers/ chills. However, on 14 August she she started to have epigastric pain. This pain comes and goes. This morning she is pain-free. Last episode of both emesis and fever were yesterday morning. She has been having green diarrhea for several days, now it is yellow but still liquid. She is NPO, last meal was two days ago , with plan to resume clears tomorrow, receiving maintenance IVF. Ordered for regimen of protonix, reglan and carafate when eating again. She denies any upper respiratory symptoms to include cough/congestion/sore throat. No dysuria. Lochia has been minimal. She has not been breast pumping since she was told she could not breast feed with certain studies she had done, but I recommended to her today if she wants to continue breast feeding she can "pump and dump" at the very least while she is still admitted. Objective: Vitals: Cyclic fevers, most recent 0420 yesterday morning 102F Other vitals wnl Exam: General: lying in bed comfortably, NAD, A&O x3 Cardiac: 1/6 systolic murmur consistent with post- cardiac changes Lungs: CTAB, no w/c/r Abdomen: soft, non-distended, NTTP, fundus firm with no tenderness at u-3cm Incision: pfannensteil healing well with no erythema/induration/drainage Extremities: No edema of BLE and no pain with palpation of calves Labs: Blood cultures negative x2 Urine culture negative Rapid flu negative GI panel negative HIV and mono negative EBV IgG elevated but IgM normal RF wnl, ANCA wnl, anti-ds DNA wnl, anti-mitochondrial ab wnl ROBERTO CARLOS and RELATIONS MGR ab elevated 08/20 CBC: 3.5/10.6/32/303 (never had WBC count greater than 3.8) CMP: 145/3.9/109/28/2/0.53/128 AST 31, ALT 32, CRP 8.78, Mg 1.8, Ca 8 Radiology: 08/19 Upper Endoscopy performed by GI: no report yet visible, but per patient no abnormal findings 08/18 TTE Impression: normal left ventricular systolic/diastolic function, mild to moderate mitral regurg, moderate tricuspid regurg and mild pulm HTN, trace pericardial effusion, no evidence of tamponade, could not rule out vegetations on atrial side of mitral valve leaflet 08/17 CTPA and HIDA scan negative 08/16 RUQUS repeated, no changes 08/14 RUQUS and repeat pelvic/abdominal CT benign (normal post-op changes) 08/16 pelvic/abdominal CT, TVUS and CXR all essentially benign with normal post- op changes Assessment: Veena is a 26y/o s/p uncomplicated section on 08 August for breech presentation with PROM with benign immediate post-op course , re-admitted on 12 August with cyclic fevers, epigastric pain, n/v/d but no obvious source of infection, no elevated WBC count, negative blood cultures. Last fever yesterday 0420 to 102F, last emesis also yesterday morning, NPO x2 days. Vitals wnl other than occasional fevers, she has a benign exam. Extensive workup performed as described in HPI with multiple negative imaging modalities and lab tests. Trial of zosyn and lovenox for possible septic pelvic thrombophlebitis was unsuccessful, so discontinued. Having diarrhea, but GI panel negative. Upper endoscopy yesterday unrevealing. TTE inconclusive, so JESES recommended, though blood cultures and no elevated WBC count make valvular vegetations less likely. At this point, most likely diagnosis is some type of GI virus. Plan: -We greatly appreciate Hospitalist, ID and GI recommendations -Plan for JESSE tomorrow morning -Continue routine [facility] care -Continue IVF LR at 100ml/hr -Continue NPO for now -Continue IV protonix, reglan and carafate when eating again -morphine IV prn pain -Encourage ambulation and breast pumping Dr. Dorian De La Garza MD [facility] VS,Jessiee, I+O VS, Jessiee, I+O Laboratory Tests 08/20/16 06:09 Calcium Level 8.0 L, Aspartate Amino Transf (AST/SGOT) 31, Alanine Aminotransferase (ALT/SGPT) 32, Alkaline Phosphatase 80, Total Bilirubin 0.2, Total Protein 5.3 L, Albumin 1.7 L 08/20/16 06:10 Red Blood Count 3.58 L, Mean Corpuscular Volume 89.4, Mean Corpuscular Hemoglobin 29.7, Mean Corpuscular Hemoglobin Concent 33.2, Red Cell Distribution Width 13.7, Neutrophils (%) (Auto) 69.0 H, Lymphocytes (%) (Auto) 18.1 L, Monocytes (%) (Auto) 4.4, Eosinophils (%) (Auto) 0.1, Basophils (%) ( Auto) 1.0, Neutrophils # (Auto) 2.4, Lymphocytes # (Auto) 0.9 L, Monocytes # ( Auto) 0.2, Eosinophils # (Auto) 0.0, Basophils # (Auto) 0.0 Vital Signs Date Time Temp Pulse Resp B/P (MAP) Pulse Ox O2 Delivery O2 Flow Rate FiO2 08/20/16 04:00 97.3 60 17 133/73 (93) 94 Room Air I&O- Last 24 Hours up to 6 AM 08/20/16 06:00 Intake Total 1289 ml Output Total 1600 ml Balance -311 ml DORIAN DE LA GARZA MD August 20, 2016 08:59
--- NOTE | 2016-08-20 09:20 | IPNPDOC ---
Subjective Date Seen The patient was seen on 08/20/16. Subjective Chief Complaint/HPI The patient is a 26-year-old female admitted with a reason for visit of FEVER. Events since last encounter pt seen and examined, no fevers overnight, no episodes of vomiting, has been NPO since yesterday for upcoming EGD. Constitutional: Denies: Chills, Fever, Night Sweats Objective Physical Examination General Exam: Positive: Alert, No Acute Distress Chest Exam: Positive: Clear to auscultation, Normal air movement Heart Exam: Positive: Rate Normal, Regular Rhythm, Normal S1, Normal S2, Negative: Murmurs, Rubs Abdomen Exam: Positive: Normal bowel sounds, Soft, Tenderness, Negative: Hepatospenomegaly Extremity Exam: Positive: Normal pulses, Negative: Clubbing, Cyanosis, Edema Assessment /Plan Problems (1) Abdominal pain Status: Acute Response to Treatment: Improving Problem Specific Plan: Consult Specialist Problem Text: * pt is scheduled for EGD this morning with dr Finch * no overnight events * pt has been NPO since yesterday * she didn't have any episodes of emesis (2) Fever Status: Acute Response to Treatment: Improving Problem Specific Plan: Consult Specialist Problem Text: * unknown origin * urine, blood, and gi panel cultures negative * cta negative for pe * HIV negative * CMV, Olya Hardwick showed likely past infection * autoimmune markers janice negative (3) Elevated lipase Status: Acute Problem Text: * unknown etiology * no signs of pancreatitis on CT scan * Dr Finch consulted, may have passes stone or sludge (4) Hypomagnesemia Status: Resolved (5) Hypokalemia Status: Resolved Plan/VTE VTE Prophylaxis Ordered?: Yes VS, I&O, 24H, [facility] Vital Signs/I&O Vital Signs Date Time Temp Pulse Resp B/P (MAP) Pulse Ox O2 Delivery O2 Flow Rate FiO2 08/20/16 08:55 97.8 61 18 131/76 (94) 96 Room Air I&O- Last 24 Hours up to 6 AM 08/20/16 06:00 Intake Total 1289 ml Output Total 1600 ml Balance -311 ml Laboratory Data 24H LABS Laboratory Tests 2 08/20/16 06:09: Anion Gap 8, Glomerular Filtration Rate > 60.0, Blood Urea Nitrogen 2L, Creatinine 0.53L, Sodium Level 145, Potassium Level 3.9, Chloride Level 109H, Carbon Dioxide Level 28, Calcium Level 8.0L, Aspartate Amino Transf (AST/SGOT) 31, Alanine Aminotransferase (ALT/SGPT) 32, Alkaline Phosphatase 80, Total Bilirubin 0.2, Total Protein 5.3L, Albumin 1.7L, Magnesium Level 1.8, C- Reactive Protein, Quantitative 8.78H, Albumin/Globulin Ratio 0.47L, Lipase 628H 08/20/16 06:10: White Blood Count 3.5L, Red Blood Count 3.58L, Hemoglobin 10.6L, Hematocrit 32.0L, Mean Corpuscular Volume 89.4, Mean Corpuscular Hemoglobin 29.7, Mean Corpuscular Hemoglobin Concent 33.2, Red Cell Distribution Width 13.7, Platelet Count 303, Neutrophils (%) (Auto) 69.0H, Lymphocytes (%) (Auto) 18.1L, Monocytes (%) (Auto) 4.4, Eosinophils (%) (Auto) 0.1, Basophils (%) (Auto) 1.0, Neutrophils # (Auto) 2.4, Lymphocytes # (Auto) 0.9L, Monocytes # (Auto) 0.2, Eosinophils # (Auto) 0.0, Basophils # (Auto) 0.0, Large Unclassified Cells % 7.3H, Large Unclassified Cells # 0.3 CBC/BMP Laboratory Tests 08/20/16 06:09 Calcium Level 8.0 L, Aspartate Amino Transf (AST/SGOT) 31, Alanine Aminotransferase (ALT/SGPT) 32, Alkaline Phosphatase 80, Total Bilirubin 0.2, Total Protein 5.3 L, Albumin 1.7 L 08/20/16 06:10 Red Blood Count 3.58 L, Mean Corpuscular Volume 89.4, Mean Corpuscular Hemoglobin 29.7, Mean Corpuscular Hemoglobin Concent 33.2, Red Cell Distribution Width 13.7, Neutrophils (%) (Auto) 69.0 H, Lymphocytes (%) (Auto) 18.1 L, Monocytes (%) (Auto) 4.4, Eosinophils (%) (Auto) 0.1, Basophils (%) ( Auto) 1.0, Neutrophils # (Auto) 2.4, Lymphocytes # (Auto) 0.9 L, Monocytes # ( Auto) 0.2, Eosinophils # (Auto) 0.0, Basophils # (Auto) 0.0 Microbiology Microbiology 08/16/16 Blood Culture - Preliminary, Resulted No Growth after 72 hours. All specime... 08/16/16 Blood Culture - Preliminary, Resulted No Growth after 72 hours. All specime... 08/12/16 Blood Culture - Final, Complete NO GROWTH AFTER 5 DAYS 08/17/16 Gastrointestinal Tract Panel (PCR) - Final, Complete 08/12/16 Influenza Virus Type A Antigen - Final, Complete 08/12/16 Influenza Virus Type B Antigen - Final, Complete 08/17/16 Urine Culture - Final, Complete 08/12/16 Urine Culture - Final, Complete PREM CHICAS DO August 20, 2016 09:20
[2016-08-20 12:20] VITALS: BP 131/81
[2016-08-20 17:15] VITALS: BP 128/79
[2016-08-20] MEDS: ACETAMINOPHEN 500 MG TAB PO PRN (17:30)
[2016-08-20 20:00] VITALS: BP 120/80
[2016-08-21] VITALS: BP 119/80
[2016-08-21 04:00] VITALS: BP 124/90
[2016-08-21] MEDS: SLF 3 ML SYR IV SCH ×3 (05:30→22:00)
[2016-08-21] MEDS: D5W/LR 1,000 ML IV SCH ×2 (05:30→14:34)
[2016-08-21 06:57] LABS: BASO % 0.7 % (0.0-1.0); EOS % 0.5 % (0.0-3.0); LARGE UNSTAINED CELL # 0.3 K/mm3 (0.0-0.4); LYMPH # 1.4 K/mm3 (1.5-6.5); LYMPH % 25.3 % (24.0-44.0); MEAN CORPUSCULAR HEMOGLOBIN 29.7 pg (27.0-33.0); MEAN CORPUSCULAR HGB CONC 32.9 g/dl (32.0-36.5); MEAN CORPUSCULAR VOLUME 90.4 fl (80.0-96.0); MONO # 0.2 K/mm3 (0.0-0.8); MONO % 3.4 % (0.0-5.0); NEUTROPHILS # 2.9 K/mm3 (1.8-7.7); NEUTROPHILS % 64.2 % (36.0-66.0); PLATELET COUNT, AUTOMATED 340 k/mm3 (150-450); RED CELL DISTRIBUTION WIDTH 13.8 % (11.5-14.5); WHITE BLOOD COUNT 4.4 K/mm3 (4.0-10.0)
[2016-08-21 07:17] LABS: ALBUMIN 1.7 GM/DL (3.2-5.2); ALBUMIN/GLOBULIN RATIO 0.46 (1.00-1.93); ALKALINE PHOSPHATASE 82 U/L (45-117); ALT/SGPT 38 U/L (12-78); ANION GAP 8 MEQ/L (8-16); AST/SGOT 50 U/L (15-37); BILIRUBIN,TOTAL 0.2 MG/DL (0.2-1.0); BLOOD UREA NITROGEN 4 MG/DL (7-18); CALCIUM LEVEL 7.6 MG/DL (8.5-10.1); CARBON DIOXIDE LEVEL 28 MEQ/L (21-32); CHLORIDE LEVEL 110 MEQ/L (98-107); CREATININE FOR GFR 0.65 MG/DL (0.55-1.02); GLOMERULAR FILTRATION RATE > 60.0 (>60); GLUCOSE, FASTING 82 MG/DL (70-105); MAGNESIUM LEVEL 1.7 MG/DL (1.8-2.4); POTASSIUM SERUM 3.3 MEQ/L (3.5-5.1); SODIUM LEVEL 146 MEQ/L (136-145); TOTAL PROTEIN 5.4 GM/DL (6.4-8.2)
[2016-08-21] MEDS: SUCRALFATE SUSP 1GM/10ML UD PO SCH ×2 (07:30→12:00)
[2016-08-21] MEDS ORDERED: MIDAZOLAM INJ 2 MG/2 ML VIAL (J2250) As Ordered ONE (07:53)
[2016-08-21 08:00] VITALS: BP 117/77
[2016-08-21] MEDS: PANTOPRAZOLE 40MG INJ (PROTONIX) (C9113) IV SCH ×2 (09:18→21:05)
[2016-08-21] MEDS: POTASSIUM CHLORIDE 10 MEQ SR TABLET PO SCH (09:18)
[2016-08-21 12:00] VITALS: BP 138/82
--- NOTE | 2016-08-21 12:30 | ROOR ---
Patient Name: Veena Garduno Procedure Date: 08/19/2016 11:34 AM Date of : 1990 Age: 26 Gender: Female Note Status: Finalized Procedure: Upper GI endoscopy Indications: Epigastric abdominal pain, Nausea with vomiting, Persistent vomiting of unknown cause Providers: Singh Finch MD Referring MD: Smith FLOREZ MD. Requesting Provider: Medicines: General Anesthesia Complications: No immediate complications. Procedure: Pre-Anesthesia Assessment: - The heart rate, respiratory rate, oxygen saturations, blood pressure, adequacy of pulmonary ventilation, and response to care were monitored throughout the procedure. The Endoscope was introduced through the mouth, and advanced to the second part of duodenum. The upper GI endoscopy was accomplished without difficulty. The patient tolerated the procedure well. Findings: The Z-line was regular and was found 35 cm from the incisors. No other significant abnormalities were identified in a careful examination of the stomach. The exam of the duodenum was otherwise normal. The exam was otherwise without abnormality. Impression: - Z-line regular, 35 cm from the incisors. - The examination was otherwise normal. - No specimens collected. - The examination was otherwise normal. Recommendation: - Patient has a contact number available for emergencies. The signs and symptoms of potential delayed complications were discussed with the patient. Return to normal activities tomorrow. Written discharge instructions were provided to the patient. - Full liquid diet. - Return patient to hospital [facility] for ongoing care. - Continue present medications. - The findings and recommendations were discussed with the patient's family. Singh Finch MD Singh Finch MD 08/21/2016 12:30:11 PM This report has been signed electronically. Number of Addenda: 0 Note Initiated On: 08/19/2016 11:34 AM Estimated Blood Loss: Estimated blood loss: none.
[2016-08-21 16:30] VITALS: BP 130/85
--- NOTE | 2016-08-21 19:30 | IPNPDOC ---
Subjective Date Seen The patient was seen on 08/21/16. Subjective Chief Complaint/HPI The patient is a 26-year-old female admitted with a reason for visit of FEVER. Events since last encounter pt states she feel much better today, wants to eat, no nausea or vomiting, she had a mild low grade temp yesterday of 100.6 Constitutional: Denies: Chills, Fever, Night Sweats Pulmonary: Denies: Dyspnea, Cough Gastrointestinal: Denies: Nausea, Vomiting, Abdominal Pain, Diarrhea, Constipation Objective Physical Examination General Exam: Positive: Alert, No Acute Distress Chest Exam: Positive: Clear to auscultation, Normal air movement Heart Exam: Positive: Rate Normal, Regular Rhythm, Normal S1, Normal S2, Negative: Murmurs, Rubs Abdomen Exam: Positive: Normal bowel sounds, Soft, Negative: Hepatospenomegaly Extremity Exam: Positive: Normal pulses, Negative: Clubbing, Cyanosis, Edema Assessment /Plan Problems (1) Abdominal pain Status: Resolved Response to Treatment: Improving Problem Specific Plan: Consult Specialist Problem Text: * s/p EGD on 08/20 negative * pt feels better today * will resume diet and continue to monitor (2) Fever Status: Resolved Response to Treatment: Improving Problem Specific Plan: Consult Specialist Problem Text: * unknown origin * Tmax of 100.6 over the last 24 hours * urine, blood, and gi panel cultures negative * cta negative for pe * HIV negative * CMV, Olya Hardwick showed likely past infection * autoimmune markers janice negative (3) Elevated lipase Status: Acute Problem Text: * unknown etiology * no signs of pancreatitis on CT scan * Dr Finch consulted, may have passes stone or sludge (4) Hypomagnesemia Status: Resolved (5) Hypokalemia Status: Resolved Plan/VTE VTE Prophylaxis Ordered?: Yes VS, I&O, 24H, [facility] Vital Signs/I&O Vital Signs Date Time Temp Pulse Resp B/P (MAP) Pulse Ox O2 Delivery O2 Flow Rate FiO2 08/21/16 16:30 99.8 68 16 130/85 (100) 99 Room Air I&O- Last 24 Hours up to 6 AM 08/21/16 06:00 Intake Total 3600 ml Output Total 900 ml Balance 2700 ml Laboratory Data 24H LABS Laboratory Tests 2 08/21/16 06:37: White Blood Count 4.4, Red Blood Count 3.50L, Hemoglobin 10.4L, Hematocrit 31.6L , Mean Corpuscular Volume 90.4, Mean Corpuscular Hemoglobin 29.7, Mean Corpuscular Hemoglobin Concent 32.9, Red Cell Distribution Width 13.8, Platelet Count 340, Neutrophils (%) (Auto) 64.2, Lymphocytes (%) (Auto) 25.3, Monocytes ( %) (Auto) 3.4, Eosinophils (%) (Auto) 0.5, Basophils (%) (Auto) 0.7, Neutrophils # (Auto) 2.9, Lymphocytes # (Auto) 1.4L, Monocytes # (Auto) 0.2, Eosinophils # (Auto) 0.0, Basophils # (Auto) 0.0, Large Unclassified Cells % 6.0H, Large Unclassified Cells # 0.3, Anion Gap 8, Glomerular Filtration Rate > 60.0, Blood Urea Nitrogen 4#L, Creatinine 0.65, Sodium Level 146H, Potassium Level 3.3L, Chloride Level 110H, Carbon Dioxide Level 28, Calcium Level 7.6L, Aspartate Amino Transf (AST/SGOT) 50H, Alanine Aminotransferase (ALT/SGPT) 38, Alkaline Phosphatase 82, Total Bilirubin 0.2, Total Protein 5.4L, Albumin 1.7L, Magnesium Level 1.7L, C-Reactive Protein, Quantitative 4.06H, Albumin/Globulin Ratio 0.46L, Lipase 970H CBC/BMP Laboratory Tests 08/21/16 06:37 Red Blood Count 3.50 L, Mean Corpuscular Volume 90.4, Mean Corpuscular Hemoglobin 29.7, Mean Corpuscular Hemoglobin Concent 32.9, Red Cell Distribution Width 13.8, Neutrophils (%) (Auto) 64.2, Lymphocytes (%) (Auto) 25.3, Monocytes (%) (Auto) 3.4, Eosinophils (%) (Auto) 0.5, Basophils (%) (Auto ) 0.7, Neutrophils # (Auto) 2.9, Lymphocytes # (Auto) 1.4 L, Monocytes # (Auto) 0.2, Eosinophils # (Auto) 0.0, Basophils # (Auto) 0.0, Calcium Level 7.6 L, Aspartate Amino Transf (AST/SGOT) 50 H, Alanine Aminotransferase (ALT/SGPT) 38, Alkaline Phosphatase 82, Total Bilirubin 0.2, Total Protein 5.4 L, Albumin 1.7 L Microbiology Microbiology 08/16/16 Blood Culture - Preliminary, Resulted No Growth after 72 hours. All specime... 08/16/16 Blood Culture - Preliminary, Resulted No Growth after 72 hours. All specime... 08/12/16 Blood Culture - Final, Complete NO GROWTH AFTER 5 DAYS 08/17/16 Gastrointestinal Tract Panel (PCR) - Final, Complete 08/12/16 Influenza Virus Type A Antigen - Final, Complete 08/12/16 Influenza Virus Type B Antigen - Final, Complete 08/17/16 Urine Culture - Final, Complete 08/12/16 Urine Culture - Final, Complete PREM CHICAS DO August 21, 2016 19:30
[2016-08-21 20:00] VITALS: BP 120/85
[2016-08-22] MEDS: D5W/LR 1,000 ML IV SCH (03:30)
[2016-08-22] MEDS: SLF 3 ML SYR IV SCH (06:00)
[2016-08-22 07:23] LABS: BASO % 0.6 % (0.0-1.0); EOS % 0.2 % (0.0-3.0); LARGE UNSTAINED CELL # 0.3 K/mm3 (0.0-0.4); LARGE UNSTAINED CELL % 5.3 % (0.0-4.0); LYMPH # 1.3 K/mm3 (1.5-6.5); LYMPH % 21.4 % (24.0-44.0); MEAN CORPUSCULAR HEMOGLOBIN 29.2 pg (27.0-33.0); MEAN CORPUSCULAR HGB CONC 32.3 g/dl (32.0-36.5); MEAN CORPUSCULAR VOLUME 90.4 fl (80.0-96.0); MONO # 0.2 K/mm3 (0.0-0.8); MONO % 4.6 % (0.0-5.0); NEUTROPHILS # 3.3 K/mm3 (1.8-7.7); NEUTROPHILS % 67.9 % (36.0-66.0); PLATELET COUNT, AUTOMATED 433 k/mm3 (150-450); RED CELL DISTRIBUTION WIDTH 13.7 % (11.5-14.5); WHITE BLOOD COUNT 4.8 K/mm3 (4.0-10.0)
[2016-08-22 07:41] LABS: ALBUMIN 1.9 GM/DL (3.2-5.2); ALBUMIN/GLOBULIN RATIO 0.45 (1.00-1.93); ALKALINE PHOSPHATASE 86 U/L (45-117); ALT/SGPT 31 U/L (12-78); ANION GAP 7 MEQ/L (8-16); AST/SGOT 29 U/L (15-37); BILIRUBIN,TOTAL 0.2 MG/DL (0.2-1.0); BLOOD UREA NITROGEN 2 MG/DL (7-18); CALCIUM LEVEL 7.8 MG/DL (8.5-10.1); CARBON DIOXIDE LEVEL 30 MEQ/L (21-32); CHLORIDE LEVEL 108 MEQ/L (98-107); CREATININE FOR GFR 0.72 MG/DL (0.55-1.02); GLOMERULAR FILTRATION RATE > 60.0 (>60); GLUCOSE, FASTING 94 MG/DL (70-105); MAGNESIUM LEVEL 1.8 MG/DL (1.8-2.4); POTASSIUM SERUM 3.3 MEQ/L (3.5-5.1); SODIUM LEVEL 145 MEQ/L (136-145); TOTAL PROTEIN 6.1 GM/DL (6.4-8.2)
[2016-08-22 08:00] VITALS: BP 124/74
[2016-08-22] MEDS: PANTOPRAZOLE 40MG INJ (PROTONIX) (C9113) IV SCH (09:10)
[2016-08-22] MEDS: POTASSIUM CHLORIDE 10 MEQ SR TABLET PO SCH (09:10)
[2016-08-22 09:19] LABS: CHOLESTEROL LEVEL 156 MG/DL (<200); TRIGLYCERIDES LEVEL 296 MG/DL (<150)
[2016-08-22] MEDS ORDERED: POTASSIUM CHLORIDE 10 MEQ SR TABLET PO ONE ×2 (10:00→11:00)
[2016-08-22 10:32] LABS: ERYTHROCYTE SEDIMENTATION RATE 86 mm/hr (0-20)
--- NOTE | 2016-08-22 11:07 | IPNPDOC ---
Text Note Date of Service The patient was seen on 08/22/16. NOTE Daily Progress Note, HD 11, POD 14 Veena is a 26y/o s/p uncomplicated section on 08 August for breech presentation with PROM with benign post-op course, re-admitted on 12 August with fever to 104F but no obvious source of infection, but over the course of her admission had cyclic fevers up to 102F. WBC count has been low rather than elevated. Within two days of her admission she developed PO intolerance with n/ v. She underwent two abdominal/pelvic CT scans, TVUS, CXR, and RUQUS x2, CTPA, HIDA scan, transthoracic echocardiogram and upper endoscopy which have all been essentially benign. She was trialed on lovenox for possible septic pelvic thrombophlebitis with no resolution of fevers and received zosyn for the first 6 days of her admission. We consulted the Hospitalist, ID and GI services and appreciate their recommendations for work-up. She has had testing for HIV, EBV, SLE, RA, and a GI panel which have all been unrevealing. She has had negative blood and urine cultures as well as negative flu A and B. At time of admission she had no specific complaints other than the fevers/ chills. However, on 14 August she she started to have colicky epigastric pain. Last fever was low-grade (100.6F) on 08/20 at 1715, and she has not had any emesis for a couple of days. Her epigastric pain has fully resolved and she is now tolerating regular diet and orally hydrating. She denies any upper respiratory symptoms to include cough/congestion/sore throat. No dysuria. Lochia has been minimal. She desires to breast feed still, though she hasn't been during admission, and she plans to begin pumping as soon as she goes home. Objective: Vitals: Last fever 100.6F on 08/20 at 1715 Currently afebrile, P 65, bp 124/74, RR 16, satting 97% in RA Exam: General: sitting in bed comfortably, NAD, A&O x3 Cardiac: 1/6 systolic murmur consistent with post- cardiac changes Lungs: CTAB, no w/c/r Abdomen: soft, non-distended, NTTP, fundus firm with no tenderness at u-3cm Incision: pfannensteil healing well with no erythema/induration/drainage Extremities: No edema of BLE and no pain with palpation of calves Labs: Blood cultures negative x2 Urine culture negative Rapid flu negative GI panel negative HIV and mono negative EBV IgG elevated but IgM normal, consistent with past infection RF wnl, ANCA wnl, anti-ds DNA wnl, anti-mitochondrial ab wnl ROBERTO CARLOS and H[employer] 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[employer] 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 ab elevated CMV testing recently performed and pending Lipid panel: triglycerides elevated 296, LDL 76, HDL low 21 08/22 CBC: 4.8/10.2/31.5/433 (never had WBC count greater than 3.8) CMP: 145/3.3/108/30/2/0.72/94 AST 29, ALT 31, CRP 5.8, Mg 1.8, Ca 7.8 Lipase 724 Radiology: 08/19 Upper Endoscopy performed by GI wnl 08/18 TTE Impression: normal left ventricular systolic/diastolic function, mild to moderate mitral regurg, moderate tricuspid regurg and mild pulm HTN, trace pericardial effusion, no evidence of tamponade, could not rule out vegetations on atrial side of mitral valve leaflet 08/17 CTPA and HIDA scan negative 08/16 RUQUS repeated, no changes 08/14 RUQUS and repeat pelvic/abdominal CT benign (normal post-op changes) 08/16 pelvic/abdominal CT, TVUS and CXR all essentially benign with normal post- op changes Assessment: Veena is a 26y/o s/p uncomplicated section on 08 August for breech presentation with PROM with benign immediate post-op course , re-admitted on 12 August with cyclic fevers, epigastric pain, n/v/d but no obvious source of infection, no elevated WBC count, negative blood cultures. Last fever 08/20 at 1715 low grade, epigastric pain resolved and now fully PO tolerant. Vitals wnl, she has a benign exam. Extensive workup performed as described in HPI with multiple negative imaging modalities and lab tests. Trial of zosyn and lovenox for possible septic pelvic thrombophlebitis was unsuccessful, so discontinued. GI panel negative. Upper endoscopy unrevealing. TTE inconclusive, but negative blood cultures makes valvular disease very unlikely. CMV testing recently performed and pending. At this point, most likely diagnosis is some type of GI virus. Plan: -We greatly appreciate assistance of Hospitalist, ID and GI during patient's admission -Will discharg pt home today since she is meeting all milestones -Patient will follow up with me in clinic in 1 week, will track CMV result when it returns -D/C IV -Return precautions given Dr. Dorian De La Garza MD [facility] VS,Fishbone, I+O VS, Fishbone, I+O Laboratory Tests 08/22/16 06:51 Red Blood Count 3.48 L, Mean Corpuscular Volume 90.4, Mean Corpuscular Hemoglobin 29.2, Mean Corpuscular Hemoglobin Concent 32.3, Red Cell Distribution Width 13.7, Neutrophils (%) (Auto) 67.9 H, Lymphocytes (%) (Auto) 21.4 L, Monocytes (%) (Auto) 4.6, Eosinophils (%) (Auto) 0.2, Basophils (%) ( Auto) 0.6, Neutrophils # (Auto) 3.3, Lymphocytes # (Auto) 1.3 L, Monocytes # ( Auto) 0.2, Eosinophils # (Auto) 0.0, Basophils # (Auto) 0.0, Calcium Level 7.8 L , Aspartate Amino Transf (AST/SGOT) 29, Alanine Aminotransferase (ALT/SGPT) 31, Alkaline Phosphatase 86, Total Bilirubin 0.2, Triglycerides Level 296 H, LDL Cholesterol 75.8, Total Protein 6.1 L, Albumin 1.9 L Vital Signs Date Time Temp Pulse Resp B/P (MAP) Pulse Ox O2 Delivery O2 Flow Rate FiO2 08/22/16 08:00 99.4 65 16 124/74 (91) 97 Room Air I&O- Last 24 Hours up to 6 AM 08/22/16 06:00 Intake Total 3120 ml Output Total 1550 ml Balance 1570 ml DORIAN DE LA GARZA MD August 22, 2016 11:06
--- NOTE | 2016-08-22 11:16 | DS.PDOC ---
Discharge Summary General Date of Admission August 12, 2016 at 18:35 Date of Discharge August 22, 2016 Attending Physician: MAYA DE LA GARZA MD Specialist/Consultants Involve Hospitalist service, Infectious Disease, GI Discharge Summary PROCEDURES PERFORMED DURING STAY: Upper endoscopy, transthoracic echocardiogram , HIDA scan ADMITTING DIAGNOSES: 1. Fevers post-/post-operatively DISCHARGE DIAGNOSES: 1. Fever of unknown origin /post-operatively, likely gastro- intestinal virus COMPLICATIONS/CHIEF COMPLAINT: FEVER. HISTORY OF PRESENT ILLNESS/HOSPITAL COURSE: Veena is a 26y/o s/p uncomplicated section on 08 August for breech presentation with PROM with benign post-op course, re-admitted on 12 August with fever to 104F but no obvious source of infection, but over the course of her admission had cyclic fevers up to 102F. WBC count has been low rather than elevated. Within two days of her admission she developed PO intolerance with n/ v. She underwent two abdominal/pelvic CT scans, TVUS, CXR, and RUQUS x2, CTPA, HIDA scan, transthoracic echocardiogram and upper endoscopy which have all been essentially benign. She was trialed on lovenox for possible septic pelvic thrombophlebitis with no resolution of fevers and received zosyn for the first 6 days of her admission. We consulted the Hospitalist, ID and GI services and appreciate their recommendations for work-up. She has had testing for HIV, EBV, SLE, RA, and a GI panel which have all been unrevealing. She has had negative blood and urine cultures as well as negative flu A and B. At time of admission she had no specific complaints other than the fevers/ chills. However, on 14 August she she started to have colicky epigastric pain. Last fever was low-grade (100.6F) on 08/20 at 1715, and she has not had any emesis for a couple of days. Her epigastric pain has fully resolved and she is now tolerating regular diet and orally hydrating. She denies any upper respiratory symptoms to include cough/congestion/sore throat. No dysuria. Lochia has been minimal. She desires to breast feed still, though she hasn't been during admission, and she plans to begin pumping as soon as she goes home. At this time, she is safe for discharge with close follow-up. Vitals are normal , she is afebrile, and exam is benign. She is fully PO tolerant and pain is resolved. DISCHARGE MEDICATIONS: routine post- medications, patient previously prescribed, no changes ALLERGIES: Please see below. PHYSICAL EXAMINATION ON DISCHARGE: Vitals: Last fever 100.6F on 08/20 at 1715 Currently afebrile, P 65, bp 124/74, RR 16, satting 97% in RA Exam: General: sitting in bed comfortably, NAD, A&O x3 Cardiac: 1/6 systolic murmur consistent with post- cardiac changes Lungs: CTAB, no w/c/r Abdomen: soft, non-distended, NTTP, fundus firm with no tenderness at u-3cm Incision: pfannensteil healing well with no erythema/induration/drainage Extremities: No edema of BLE and no pain with palpation of calves LABORATORY DATA: Blood cultures negative x2 Urine culture negative Rapid flu negative GI panel negative HIV and mono negative EBV IgG elevated but IgM normal, consistent with past infection RF wnl, ANCA wnl, anti-ds DNA wnl, anti-mitochondrial ab wnl 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 CMV testing recently performed and pending Lipid panel: triglycerides elevated 296, LDL 76, HDL low 21 08/22 CBC: 4.8/10.2/31.5/433 (never had WBC count greater than 3.8) CMP: 145/3.3/108/30/2/0.72/94 AST 29, ALT 31, CRP 5.8, Mg 1.8, Ca 7.8 Lipase 724 IMAGIN/13 Upper Endoscopy performed by GI wnl 08/18 TTE Impression: normal left ventricular systolic/diastolic function, mild to moderate mitral regurg, moderate tricuspid regurg and mild pulm HTN, trace pericardial effusion, no evidence of tamponade, could not rule out vegetations on atrial side of mitral valve leaflet 08/17 CTPA and HIDA scan negative 08/16 RUQUS repeated, no changes 08/14 RUQUS and repeat pelvic/abdominal CT benign (normal post-op changes) 08/16 pelvic/abdominal CT, TVUS and CXR all essentially benign with normal post- op changes ACTIVITY: vaginal rest x6 weeks otherwise as tolerated DIET: regular DISPOSITION: home DISCHARGE INSTRUCTIONS: 1. Keep incision clean and dry 2. No heavy lifting greater than weight of baby for 6 weeks post-operative 3. Strong return precautions given for fevers/chills, increasing abdominal pain , inability to eat/drink without vomiting, evidence of mastitis or wound infection ITEMS TO FOLLOWUP ON ON OUTPATIENT: 1. CMV testing DISCHARGE CONDITION: Stable TIME SPENT ON DISCHARGE: Greater than [address] Maya De La Garza MD [facility] Vital Signs/I&Os Vital Signs Date Time Temp Pulse Resp B/P (MAP) Pulse Ox O2 Delivery O2 Flow Rate FiO2 08/22/16 08:00 99.4 65 16 124/74 (91) 97 Room Air I&O- Last 24 Hours up to 6 AM 08/22/16 06:00 Intake Total 3120 ml Output Total 1550 ml Balance 1570 ml Laboratory Data Labs 24H Laboratory Tests 2 08/22/16 06:51: White Blood Count 4.8, Red Blood Count 3.48L, Hemoglobin 10.2L, Hematocrit 31.5L , Mean Corpuscular Volume 90.4, Mean Corpuscular Hemoglobin 29.2, Mean Corpuscular Hemoglobin Concent 32.3, Red Cell Distribution Width 13.7, Platelet Count 433, Neutrophils (%) (Auto) 67.9H, Lymphocytes (%) (Auto) 21.4L, Monocytes (%) (Auto) 4.6, Eosinophils (%) (Auto) 0.2, Basophils (%) (Auto) 0.6, Neutrophils # (Auto) 3.3, Lymphocytes # (Auto) 1.3L, Monocytes # (Auto) 0.2, Eosinophils # (Auto) 0.0, Basophils # (Auto) 0.0, Large Unclassified Cells % 5.3H, Large Unclassified Cells # 0.3, Erythrocyte Sedimentation Rate 86H, Anion Gap 7L, Glomerular Filtration Rate > 60.0, Blood Urea Nitrogen 2L, Creatinine 0.72, Sodium Level 145, Potassium Level 3.3L, Chloride Level 108H, Carbon Dioxide Level 30, Calcium Level 7.8L, Aspartate Amino Transf (AST/SGOT) 29, Alanine Aminotransferase (ALT/SGPT) 31, Alkaline Phosphatase 86, Total Bilirubin 0.2, Triglycerides Level 296H, LDL Cholesterol 75.8, Total Protein 6.1L, Albumin 1.9L, Magnesium Level 1.8, C-Reactive Protein, Quantitative 5.80H , Albumin/Globulin Ratio 0.45L, Total Cholesterol 156, Non-HDL Cholesterol (LDL + VLDL) 135, Total HDL Cholesterol 21L, Cholesterol/HDL Ratio 7.428H, Lipase 724H CBC/BMP Laboratory Tests 08/22/16 06:51 Red Blood Count 3.48 L, Mean Corpuscular Volume 90.4, Mean Corpuscular Hemoglobin 29.2, Mean Corpuscular Hemoglobin Concent 32.3, Red Cell Distribution Width 13.7, Neutrophils (%) (Auto) 67.9 H, Lymphocytes (%) (Auto) 21.4 L, Monocytes (%) (Auto) 4.6, Eosinophils (%) (Auto) 0.2, Basophils (%) ( Auto) 0.6, Neutrophils # (Auto) 3.3, Lymphocytes # (Auto) 1.3 L, Monocytes # ( Auto) 0.2, Eosinophils # (Auto) 0.0, Basophils # (Auto) 0.0, Calcium Level 7.8 L , Aspartate Amino Transf (AST/SGOT) 29, Alanine Aminotransferase (ALT/SGPT) 31, Alkaline Phosphatase 86, Total Bilirubin 0.2, Triglycerides Level 296 H, LDL Cholesterol 75.8, Total Protein 6.1 L, Albumin 1.9 L Microbiology Microbiology 08/16/16 Blood Culture - Final, Complete NO GROWTH AFTER 5 DAYS 08/16/16 Blood Culture - Final, Complete NO GROWTH AFTER 5 DAYS 08/12/16 Blood Culture - Final, Complete NO GROWTH AFTER 5 DAYS 08/17/16 Gastrointestinal Tract Panel (PCR) - Final, Complete 08/12/16 Influenza Virus Type A Antigen - Final, Complete 08/12/16 Influenza Virus Type B Antigen - Final, Complete 08/17/16 Urine Culture - Final, Complete 08/12/16 Urine Culture - Final, Complete Discharge Medications Scheduled Multivitamins/ ( 19) 1 Tab Tab, 1 TAB PO DAILY, (Reported) Scheduled PRN Acetaminophen (Mapap) 500 Mg Tab, 1,000 MG PO Q6H PRN for PAIN, (Reported) Calcium Carbonate (Tums) 500 Mg Chw, 1,000 MG PO PRN PRN for HEARTBURN, ( Reported) Ibuprofen (Ibuprofen) 800 Mg Tab, 800 MG PO Q8H PRN for PAIN, (Reported) Oxycodone/Acetaminophen (Oxycodone/Acetaminophen 5-325 mg) 1 Tab Tab, 1 TAB PO Q4H PRN for ABDOMINAL PAIN, (Reported) Polyethylene Glycol (Miralax) 1 Pow Pow, 17 GM PO DAILY PRN for CONSTIPATION, ( Reported) Allergies Coded Allergies: No Known Allergies (Unverified , 05/28/13) MAYA DE LA GARZA MD August 22, 2016 11:16
--- NOTE | 2016-08-22 15:56 | IPNPDOC ---
Text Note Date of Service The patient was seen on 08/22/16. NOTE Subjective: Pt feels well. Tolerating regular. Denies N/V/abd pain. Objective: Vitals: (see below) General: No acute distress, laying comfortably in bed. HEENT: Moist mucous membranes. Neck: No JVD or lymphadenopathy Cardiac: RRR, No murmurs Pulm: Clear to auscultation b/l. No wheezing, rhonchi Abd: NT/ND + BS Ext: No edema or cyanosis Labs (see below) Assessment/Plan 1. Mild pancreatitis - No CT changes or complications. Lipase trending down. RUQ u/s - no stones. LFTs wnl. GI on board. s/p EGD for intractable vomiting negative with the exception of irregular z line. Tolerating regular diet. 2. Fevers - resolved. ? viral. CTA negative for PE. Viral workup negative. CMV pending. Autoimmune workup negative. 3. Hypokalemia - replaced. 4. Echo with MR, TR, ? need for JESSE - spoke with Dr. Porter and Dr. Jacobs - given negative cultures and afebrile, no need for JESSE at this time - pt will f/u with Dr. Jacobs in 1 week. Pt will need to f/u with GI and PCP outpt. F/u with Dr. Jacobs in 1 week. VS,Fishbone, I+O VS, Fishbone, I+O Laboratory Tests 08/22/16 06:51 Red Blood Count 3.48 L, Mean Corpuscular Volume 90.4, Mean Corpuscular Hemoglobin 29.2, Mean Corpuscular Hemoglobin Concent 32.3, Red Cell Distribution Width 13.7, Neutrophils (%) (Auto) 67.9 H, Lymphocytes (%) (Auto) 21.4 L, Monocytes (%) (Auto) 4.6, Eosinophils (%) (Auto) 0.2, Basophils (%) ( Auto) 0.6, Neutrophils # (Auto) 3.3, Lymphocytes # (Auto) 1.3 L, Monocytes # ( Auto) 0.2, Eosinophils # (Auto) 0.0, Basophils # (Auto) 0.0, Calcium Level 7.8 L , Aspartate Amino Transf (AST/SGOT) 29, Alanine Aminotransferase (ALT/SGPT) 31, Alkaline Phosphatase 86, Total Bilirubin 0.2, Triglycerides Level 296 H, LDL Cholesterol 75.8, Total Protein 6.1 L, Albumin 1.9 L Vital Signs Date Time Temp Pulse Resp B/P (MAP) Pulse Ox O2 Delivery O2 Flow Rate FiO2 08/22/16 08:00 99.4 65 16 124/74 (91) 97 Room Air I&O- Last 24 Hours up to 6 AM 08/22/16 06:00 Intake Total 3120 ml Output Total 1550 ml Balance 1570 ml MAR ALFONSO MD August 22, 2016 15:56
[2016-08-25 14:16] LABS: CMV QUANT DNA PCR, URINE Negative copies/mL (Negative)
== END 2016-08-22 12:00 | disposition home or self-care (01) | DRG 776 ==
LOC: M ED 13:58 → OBSVTOIN 18:35 → M ED INP 18:35 → M PED 20:05
PROVIDERS: ADMIT Obstetrics & Gynecology; ATTEND Obstetrics & Gynecology
PROC: 0DJ08ZZ Inspection of Upper Intestinal Tract, Via Natural or Artificial Opening Endoscopic (ICD-10-PCS; principal; 2016-08-19 11:09)
DX: O98.53 Other viral diseases complicating the puerperium (principal); O86.4 Pyrexia of unknown origin following delivery; O99.63 Diseases of the digestive system complicating the puerperium; R10.13 Epigastric pain; E87.6 Hypokalemia; O99.285 Endocrine, nutritional and metabolic diseases complicating the puerperium; E83.42 Hypomagnesemia; I34.0 Nonrheumatic mitral (valve) insufficiency; I36.0 Nonrheumatic tricuspid (valve) stenosis

== ENCOUNTER → 2016-09-28 | Outpatient (CLI) | payer OTHER ==
[~2016-09-28] MED LIST changes: +IBUP800T23 PO; +IBUPOTC PO; +MIRA33504 PO
[2016-09-28 16:05] LABS: ALBUMIN 4.4 GM/DL (3.2-5.2); ALBUMIN/GLOBULIN RATIO 0.94 (1.00-1.93); BILIRUBIN,DIRECT 0.1 MG/DL (0.0-0.2); BILIRUBIN,TOTAL 0.4 MG/DL (0.2-1.0); TOTAL PROTEIN 9.1 GM/DL (6.4-8.2)
== END ==
LOC: M LAB 15:19
PROVIDERS: ATTEND Internal Medicine Gastroenterology
DX: R74.8 Abnormal levels of other serum enzymes (principal)